=== PATIENT | female | born 1960 | race Caucasian/White ===

== ENCOUNTER 2024-12-17 13:32 | Emergency (ER) | payer BC, MEDICARE, SELFPAY ==
[2024-12-17] VITALS (29 sets, daily range): BP systolic 75–113; BP diastolic 35–65; BMI 17.4
[2024-12-17 13:56] LABS: Hematocrit 26.2 % (37.0-47.0); Hemoglobin 8.7 g/dL (12.0-16.0); Mean Corp Hgb Conc. 33.2 g/dL (33.0-37.0); Mean Corpuscular Volume 100.8 fL (81.0-99.0); Platelet Count 268 10^3/uL (130-400); Red Cell Dist. Width 14.5 % (11.5-14.5)
[2024-12-17 14:11] LABS: Blood Urea Nitrogen 48 mg/dl (7-17); Calcium 8.8 mg/dl (8.4-10.2); Carbon Dioxide 10 mmol/L (22-30); Chloride 98 mmol/L (98-107); Estimated Creatinine Clearance 24 ml/min; Glucose 77 mg/dl (70-99); Sodium 127 mmol/L (135-145); eGFR 35.35
[2024-12-17 14:16] LABS: Nucleated Red Blood Cells % 0.2 %
[2024-12-17] MEDS: ZOFRAN 4 MG IV (14:26)
--- NOTE | 2024-12-17 14:26 | ED.GENMED ---
History of Present Illness
General
Chief Complaint: Abdominal Symptoms
Source: patient
Time Seen by Provider: 12/17/24 14:00
History of Present Illness
History of Present Illness:
64-year-old female presents to the emergency room complaining of nausea, vomiting which began yesterday. Patient states she has pain all over. She denies any diarrhea or constipation. She is attempting to drink fluids and feels they sometimes
stay down though she has had about 5 or more episodes of vomiting in the past several hours. Patient had recent surgery for gastric volvulus and a hiatal hernia. This was performed at [place]. Patient evidently originally presented to [facility] for abdominal pain. She was found to have the above diagnosis and transferred to [place] for higher level of care. Patient came here because she did not want to go back to [place].
Phy Exam
Physical Exam
Physical Exam:
General: Awake, Alert, Oriented X3. Cachectic appearing, ill-appearing
Vitals: Hypotensive
Head: Atraumatic
Eyes: Pupils equal, EOMI
Throat: Airway intact, no exudates, dry mucosa
Neck: Trachea midline
Lungs: Clear and equal b/l
Heart: Regular rate, no murmurs
Abd: Soft, mild diffuse tenderness without point tenderness, No pulsatile mass
Neuro: Nonfocal
Skin: Warm, dry, no rash
Extremities: pulses equal b/l, no edema
Course
Orders/Labs/Results
Orders:
Orders
12/17/24 13:46
Basic Metabolic Panel Urgent
Complete Blood Count/With Diff Urgent
12/17/24 14:00
Lactate Level [Lactic Acid] Urgent
12/17/24 14:18
CT Chest/abd/pel Wo Iv Cont Urgent
Reason For Exam: pain, vomit, recent sx for gastric volv/hiatal her
Iohexol [Omnipaque] See Protocol PO NOW STA
12/17/24 14:22
Potassium Urgent
Venous Blood Gas Urgent
%Oxygen/Room Air: ra
12/17/24 14:23
Ondansetron Injectable [Zofran] 4 mg IV NOW STA
12/17/24 14:25
Electrocardiogram (*1) Urgent
Reason for Study: QTc Monitoring
EKG- Treatment ONCE
12/17/24 14:37
HYDROmorphone [Dilaudid] 0.5 mg IV NOW STA
12/17/24 15:06
Lactated Ringers [Lr] 1,000 ml IV BOLUS
12/17/24 15:15
Dextrose 5%/Water 1000 ml [D5w] 1,000 ml Sodium Bicarbonate 150 meq IV 200 mls/hr
12/17/24 15:53
Allen Placement- Treatment ONCE
Reason for insertion: I&O's Critical Care
Cefepime HCl [Maxipime] 2,000 mg IV NOW STA
MetroNIDAZOLE 500 MG/100 ML [Flagyl 500 mg] 100 ml IV NOW
NORepinephrine 4 MG/250 ML [Levophed] 4 mg in 250 ml IV NOW
Initial dose in mcg/min, then titrate:: 4
Titrate to keep:: MAP > 65 mmHg
Titrate by mcg/min:: 1-2 mcg/min
Frequency of titrations (minutes):: 5
Maximum dose in ICU in mcg/min:: 30
Maximum dose in IMU in mcg/min:: 8
Maximum dose in IVU in mcg/min:: 4
Begin to taper infusion when:: Remained at goal for 4hrs
Taper by mcg/min:: 1-2 mcg/min
Frequency of taper (minutes) if patient maintains goal:: 30
Taper to off?: Yes
If infusion off & no longer maintaining goal:: Contact Provider
12/17/24 17:17
Lactated Ringers [Lr] 1,000 ml IV BOLUS
12/17/24 17:36
Vasopressin 20 Units/100 ml [Pitressin] 20 units in 100 ml IV NOW
Initial dose in units/min, then titrate:: 0.03
Titrate to keep:: MAP > 65 mmHg
Titrate by units/min:: 0.005 units/min
Frequency of titrations (minutes):: 10
Maximum dose in units/min:: 0.1
Begin to taper infusion when:: Remained at goal for 8hrs
Taper by units/min:: 0.005 units/min
Frequency of taper (minutes) if patient maintains goal:: 60
Taper to off?: Yes
If infusion off and no longer mantaining goal:: Contact Provider
12/17/24 17:49
Basic Metabolic Panel Urgent
Comprehensive Metabolic Panel Urgent
Lactate Level [Lactic Acid] Urgent
Urinalysis Reflex To Culture Urgent
Date Specimen was Collected: 12/17/24
Time Specimen was Collected: 16:25
Urine Microscopic Reflex Cult Urgent
Blood Culture Q20M
JOSE RAFAEL Source: Blood/Venous
Specimen Description:
Comment: Urgent from separate sites. If patient screens positive for possible sepsis
Blood Culture Q20M
JOSE RAFAEL Source: Blood/Venous
Specimen Description:
Comment: Urgent from separate sites. If patient screens positive for possible sepsis
Urine Culture Urgent
JOSE RAFAEL Source: U
Specimen Description:
Date Specimen was Collected: 12/17/24
Time Specimen was Collected: 16:25
12/17/24 18:05
Vasopressin 20 Units/100 ml [Pitressin] 20 units in 100 ml IV NOW
Initial dose in units/min, then titrate:: 0.03
Titrate to keep:: MAP > 65 mmHg
Titrate by units/min:: 0.005 units/min
Frequency of titrations (minutes):: 10
Maximum dose in units/min:: 0.1
Begin to taper infusion when:: Remained at goal for 8hrs
Taper by units/min:: 0.005 units/min
Frequency of taper (minutes) if patient maintains goal:: 60
Taper to off?: Yes
If infusion off and no longer mantaining goal:: Contact Provider
12/17/24 18:08
Chest X-ray Portable [CR Chest Portable - 1 View] Urgent
Comment:
Reason For Exam: ngt
Reason Study Needs to be Portable: Patient Unstable
12/17/24 18:43
HYDROmorphone [Dilaudid] 0.5 mg IV NOW STA
12/17/24 19:22
NORepinephrine 4 MG/250 ML [Levophed] 4 mg in 250 ml .ROUTE .STK-MED
Abnormal Lab Results
12/17/24 12/17/24 12/17/24
13:46 14:00 14:22
WBC 23.6 H 10^3/uL
(4.8-10.8)
RBC 2.60 L 10^6/uL
(4.20-5.40)
Hgb 8.7 L g/dL
(12.0-16.0)
Hct 26.2 L %
(37.0-47.0)
MCV 100.8 H fL
(81.0-99.0)
MCH 33.5 H pg
(27.0-31.0)
Abs Immat Gran (auto) 0.2 H 10^3/uL
(0-0.05)
Absolute Neuts (auto) 20.4 H 10^3/uL
(1.4-6.5)
Absolute Lymphs (auto) 0.9 L 10^3/uL
(1.2-3.4)
Absolute Monos (auto) 2.0 H 10^3/uL
(0.1-0.6)
Immature Gran % 0.8 H %
(0-0.5)
Neutrophils % 86.4 H %
(42.2-75.2)
Lymphocytes % 3.9 L %
(20.5-51.1)
VBG pH 7.21 L
(7.32-7.43)
VBG pCO2 21 L mmHg
(35-48)
VBG pO2 166 H mmHg
(30-50)
VBG HCO3 8.4 L mmol/L
(22-27)
Sodium 127 L mmol/L
(135-145)
Potassium 5.8 H mmol/L
(3.5-5.1)
Carbon Dioxide 10 L* mmol/L
(22-30)
BUN 48 H mg/dl
(7-17)
Creatinine 1.6 H mg/dL
(0.6-1.0)
Glucose
Lactic Acid 12.7 H* mmol/L
(0.7-2.0)
Calcium
AST
ALT
Alkaline Phosphatase
Total Protein
Albumin
Urine Ketones
Ur Occult Blood Reflex
Urine Bilirubin
Urine Urobilinogen
Leukocyte Esterase Rfl
Urine Bacteria (Reflex)
Urine Albumin (Reflex)
12/17/24
17:49
WBC
RBC
Hgb
Hct
MCV
MCH
Abs Immat Gran (auto)
Absolute Neuts (auto)
Absolute Lymphs (auto)
Absolute Monos (auto)
Immature Gran %
Neutrophils %
Lymphocytes %
VBG pH
VBG pCO2
VBG pO2
VBG HCO3
Sodium 126 L mmol/L
(135-145)
Potassium
Carbon Dioxide
BUN 52 H mg/dl
(7-17)
Creatinine 1.4 H mg/dL
(0.6-1.0)
Glucose 153 H mg/dl
(70-99)
Lactic Acid 5.3 H* mmol/L
(0.7-2.0)
Calcium 7.4 L mg/dl
(8.4-10.2)
AST 2095 H* U/L
(14-36)
ALT 995 H* U/L
(0-35)
Alkaline Phosphatase 234 H U/L
(38-126)
Total Protein 4.2 L g/dl
(6.3-8.2)
Albumin 2.1 L g/dl
(3.5-5.0)
Urine Ketones 1+ A
(Negative)
Ur Occult Blood Reflex 1+ A
(Negative)
Urine Bilirubin 1+ A
(Negative)
Urine Urobilinogen 2+ A
(Neg - 1+)
Leukocyte Esterase Rfl 1+ A
(Negative)
Urine Bacteria (Reflex) Few A
(Negative)
Urine Albumin (Reflex) 2+ A
(Neg - Trace)
12/17/24 13:46
12/17/24 17:49
Vital Signs
Initial and Last Documented VS:
Initial Vital Signs
Temp Pulse Resp BP Pulse Ox
97.5 F 82 16 86/54 100
12/17/24 13:37 12/17/24 13:37 12/17/24 13:37 12/17/24 13:37 12/17/24 13:37
Last Documented Vital Signs
Temp Pulse Resp BP Pulse Ox
97.8 F 93 16 87/58 94
12/17/24 16:40 12/17/24 19:10 12/17/24 13:37 12/17/24 19:10 12/17/24 19:10
MDM/Problems Addressed
Differential Diagnosis Includes:
Dehydration from poor oral intake and vomiting, sepsis from postoperative infection, postoperative infection or other complication
MDM/Problems Addressed:
Patient presents with nausea vomiting. She has had multiple episodes over the past couple days. No diarrhea or constipation. Her abdominal exam is fairly benign. She is hypotensive on arrival. Labs show a significantly elevated white blood cell
count of 23.6. Her hemoglobin is adequate at 8.7. We do not have any old labs to compare these results to. Plate count is normal. Chemistries show a moderate hyponatremia at 127. Potassium is elevated at 5.8. She has a significantly decreased
bicarb. Renal function is abnormal with a BUN of 48 and creatinine 1.6. She has an anion gap of 19. Treatment initiated with fluid resuscitation. She received a liter normal saline and then a second liter of lactated Ringer's. Given her
markedly low bicarb and infusion of sodium bicarb was initiated. Patient's blood pressure did not seem to increase with fluid boluses. Therefore Levophed ordered. Broad-spectrum antibiotics ordered to cover intra-abdominal source. Will place a
Allen to carefully measure I+O's. We are attempting to obtain information from [place] about her recent hospitalization. CT of the chest abdomen pelvis ordered to evaluate for postoperative complications or other intra-abdominal pathology.
Chest x-ray after NG tube notes NG tube coiled in esophagus. Will pull it back several centimeters
*Pulse Oximetry
SaO2: 100
Oxygen Mode of Delivery: Room air
Patient hypoxic: no
*EKG
Interpreted by ED Provider?: Yes
Heart Rate: 85
Rate: normal
Rhythm: sinus
[place]: normal axis
Interval: normal interval
QRS Pattern: normal QRS
Ischemia: no ischemia
*Media Production Support Manager Interpretation
Rate: normal
Interpretation: abnormal
Rhythm: sinus
*Critical Care Note
Total Time (30-74mins, 75-104mins- exclusive of procedures): 50 min
ED Attending Note
-
Portions of this chart may have been created with voice recognition software.� Occasional wrong word or��sound alike� substitutions may have occurred due to the inherent limitations of voice recognition software.
Discharge Plan
Departure
Patient Disposition: Acute Care Hospital
Date of Disposition: 12/17/24
Time of Disposition: 18:01
Discharge Problem:
Shock, Metabolic acidosis, Acute renal failure (ARF)
Prescriptions:
No Action
pantoprazole [Protonix] 40 mg Tablet,Delayed Release (Dr/Ec)
40 mg PO BID
prednisone 10 mg Tablet
10 mg PO DIRECTED
Patient Comments:
12/17/24- patient unsure of directions, can see some directions for rx in doctor [facility], no ecw and her pharmacy close for today 12/17/24 will try 12/18/24
Rx Instructions:
take 40mg daily for 2 days then 30mg daily for 2 days then 20mg daily for 2 days then 10mg daily for 2 days then 5mg daily for 2 days
enalapril maleate 20 mg Tablet
20 mg PO HS
gabapentin 300 mg Capsule
300 mg PO TID
lorazepam 1 mg Tablet
1 mg PO QID
zolpidem [Ambien] 10 mg Tablet
10 mg PO HSPRN PRN (Reason: sleep)
albuterol sulfate [ProAir HFA] 90 mcg/actuation Hfa Aerosol Inhaler
2 puff INHALATION R Q6HPRN PRN (Reason: sob)
oxycodone 5 mg Tablet
5 mg PO Q6HPRN PRN (Reason: severe pains)
rosuvastatin [Crestor] 40 mg Tablet
40 mg PO DAILY
Asmanex Twisthaler 220 mcg/ actuation (120) Aerosol Powdr Breath Activated
1 inh INHALATION R BID
aripiprazole 2 mg Tablet
4 mg PO HS
Referrals:
UNKNOWN - PT DOES,NOT KNOW [Family Provider]
Hospital Transfer
Other hospital: [facility]
I certify that the patient requires transfer: Yes
Discussed case with accepting physician: Dr. Jones
Reason for transfer: higher level of care
Interventions
Interventions:
*Risk Screen - Suicide Last Done: 12/17/24 13:43
*General Assessment Last Done: 12/17/24 13:42
*Neglect/Abuse Screening Last Done: 12/17/24 13:43
*ED- Fall Risk Assessment Last Done: 12/17/24 13:42
*ED COVID-19 Vaccine History Last Done: 12/17/24 13:42
*Nursing Disposition Last Done: 12/17/24 19:45
PY-Tonqnq-Svoizanwmd Assessment Last Done: 12/17/24 13:43
Discharge Date and Time
Discharge Date/Time: 12/17/24 19:47
Print Language: UPPER SORBIAN
[2024-12-17 14:28] LABS: Venous Blood Gas B.E. -17.8 mmol/L (-4 to +4); Venous Blood Gas O2 Sat % 100.0 %
[2024-12-17 14:38] LABS: Potassium 5.8 mmol/L (3.5-5.1)
[2024-12-17] MEDS: OMNIPAQUE 50 ML PO (14:41)
[2024-12-17] MEDS: DILAUDID 0.5 MG IV ×2 (14:41→18:51)
[2024-12-17] MEDS: SODIUM BICARBONATE 1150 MEQ IV (15:22)
[2024-12-17] MEDS: LR 1000 IV ×2 (15:34→18:09)
[2024-12-17] MEDS: FLAGYL 500 MG 100 IV (16:46)
[2024-12-17] MEDS: LEVOPHED 250 IV (16:47)
[2024-12-17] MEDS: MAXIPIME 2000 MG IV (16:51)
--- NOTE | 2024-12-17 17:09 | PHANOTE ---
12/17/24- patient unsure of directions for prednisone taper, can see some directions for rx in doctor first, no ecw, [facility] pharmacy closed for today 12/17/24 will try 12/18/24, patient from [place], nurse working on paperwork being faxed over
[2024-12-17] MEDS: PITRESSIN 100 IV (18:09)
[2024-12-17 18:11] LABS: Urine Character Clear (Clear)
[2024-12-17 18:38] LABS: Albumin 2.1 g/dl (3.5-5.0); Alkaline Phosphatase 234 U/L (38-126); Blood Urea Nitrogen 52 mg/dl (7-17); Calcium 7.4 mg/dl (8.4-10.2); Carbon Dioxide 22 mmol/L (22-30); Chloride 98 mmol/L (98-107); Estimated Creatinine Clearance 28 ml/min; Glucose 153 mg/dl (70-99); Potassium 5.0 mmol/L (3.5-5.1); Sodium 126 mmol/L (135-145); Total Protein 4.2 g/dl (6.3-8.2); eGFR 41.49
[2024-12-17 18:49] LABS: Urine Red Blood Cell 0-2 /HPF (0-2); Urine White Cell 0-2 /HPF (0-5)
[2024-12-17 19:06] LABS: ALT (SGPT) 995 U/L (0-35); AST (SGOT) 2095 U/L (14-36)
== END 2024-12-17 19:47 | disposition short-term general hospital (02) ==
LOC: EMR 13:32
PROVIDERS: Student in an Organized Health Care Education/Training Program; EMERGENCY PHYSICIAN Emergency Medicine
DX: R11.2 Nausea with vomiting, unspecified (principal); R57.9 Shock, unspecified; N17.9 Acute kidney failure, unspecified; R52 Pain, unspecified; E87.20 Acidosis, unspecified; E87.1 Hypo-osmolality and hyponatremia; R64 Cachexia; Z98.890 Other specified postprocedural states; Z88.0 Allergy status to penicillin; Z88.2 Allergy status to sulfonamides
CPT/HCPCS: 96366 ×9; 96367 ×2; 96375 ×2; 43752; 51702; 71045; 71250; 74176; 80048; 80053; 81003; 81015; 82805; 83605; 84132; 85025; 87040; 87086; 93005; 96361; 96365; 96376; 99285; 99291

== ENCOUNTER 2025-01-07 13:13 | Inpatient (IN) | payer MEDICARE, BC, SELFPAY ==
[2025-01-05] VITALS (13 sets, daily range): BP systolic 90–143; BP diastolic 49–72; PULSE 89; O2SAT 100; BMI 19.9
[2025-01-05 13:04] LABS: Hematocrit 27.1 % (37.0-47.0); Hemoglobin 8.5 g/dL (12.0-16.0); Mean Corp Hgb Conc. 31.4 g/dL (33.0-37.0); Mean Corpuscular Volume 94.1 fL (81.0-99.0); Nucleated Red Blood Cells % 0.4 %; Platelet Count 382 10^3/uL (130-400); Red Cell Dist. Width 16.0 % (11.5-14.5)
--- NOTE | 2025-01-05 13:22 | ED.GENMED ---
History of Present Illness
General
Chief Complaint: Fall
Source: patient and ambulance crew
Exam Limitations: none
Time Seen by Provider: 01/05/25 12:59
Nursing documentation reviewed up to this point in time: agreed with
History of Present Illness
History of Present Illness:
64-year-old female with a past medical history of hypertension, hyperlipidemia who presents to the emergency department from home after a fall. Patient notably had gastric volvulus and hiatal hernia repair at [facility] 12/10/2024.
She says she recently returned home and has had a visiting nurse. She has been getting around mainly with a rollator. She says that last night she woke up to go to the bathroom at around 4 AM. While she was trying to get up to go to the bathroom
she says that her legs felt weak underneath her and 'gave out' and she fell to the ground. She says she fell onto her bottom. Unsure of head strike. She was not strong enough to get up and was found this morning by visiting nurse. She complains
of some mild pain in her bottom as well as some mild neck pain. She denies any headache. She denies any rib pain. Denies any abdominal pain. She has chronic swelling and pain in her legs but no acute pain in the legs, denies any injuries to the
arms. She insist that she did not pass out and that this was a mechanical fall. Medication review shows she is not on blood thinners.
I did review her chart which shows the patient was here in the emergency room 12/17/2024t that time presented with nausea and vomiting as well as abdominal discomfort. She had shock requiring vasopressors and multiple laboratory abnormalities at
the time; CT of the abdomen pelvis showed likely acute intraluminal hemorrhage into the esophagus and a large loculated fluid collection in the posterior mediastinum around the distal esophagus near the hiatal hernia repair. There is also
suggestion of pneumo and hemoperitoneum, severe colonic ileus. She was transferred back to [place] at that time�she cannot tell me exactly when she returned home but she tells me that she did not go to rehab after her return trip to [place]. I
attempted to reach out to her primary contact who is a friend but could not get an answer.
Review of Systems
Review of Systems
All Other Systems: ROS reviewed and negative except as documented in HPI and ROS
Constitutional: Reports fatigue; Denies fever
Respiratory: Denies trouble breathing
Cardiac: Denies chest pain
ABD/GI: Denies abdominal pain, nausea or vomiting
: Denies flank pain
Musculoskeletal: Reports neck pain; Denies back pain
Neurological: Reports weakness (Generalized); Denies dizzy or headache
Phy Exam
Physical Exam
Physical Exam:
General: Patient is lethargic but arousable and oriented x 3 upon awakening; frail and cachectic but in no acute distress
Head: Normocephalic, atraumatic
Eyes: Conjunctiva normal, pupils equal round reactive to light bilaterally
Throat: Airway intact, handling secretions
Neck: Trachea midline, mild paraspinal tenderness in the lower cervical spine
Back: No signs of trauma to the back or flank, mild tenderness over the coccyx but no tenderness in the thoracic or lumbar region; she has stage I sacral wound
Lungs: Clear to auscultation bilaterally, no wheezing, rales, rhonchi
Heart: Regular rate and rhythm, no murmurs, gallops, or rubs; no chest wall tenderness
Abd: Soft, non distended, nontender
Neuro: Lethargic but arousable, generally weak but no focal weakness
Skin: Patient has superficial skin breakdown on the lower extremities bilaterally and weeping of the skin due to significant edema; she has stage I sacral wound
Extremities: +2 pitting edema in the lower extremities bilaterally with minor skin breakdown and weeping; no signs of acute trauma to the extremities, extremities are warm and well-perfused
Scores
Heart Failure Risk
Heart Failure Risk Score: Not Applicable
Heart Score for Chest Pain Patients
STEMI patient?: Not applicable
Withdrawal Assessment of Alcohol
Withdrawal Assessment Completed?: Not applicable
Course
Orders/Labs/Results
Orders:
Orders
01/05/25 12:43
Complete Blood Count/With Diff Urgent
Comprehensive Metabolic Panel Urgent
Creatine Phosphokinase Urgent
Comment: ADD ON
01/05/25 13:11
Add On- LAB Stat
Tests Added?: CPK
01/05/25 13:21
CT Cervical Spine W/o Iv Contr Urgent
Comment:
Reason For Exam: fall, found down
CT Head W/o Iv Contrast Urgent
Comment:
Reason For Exam: fall, found down
CR Pelvis - 1 Or 2 Views Urgent
Comment:
Reason For Exam: fall on bottom
01/05/25 13:31
Urinalysis Reflex To Culture Urgent
Date Specimen was Collected: 01/05/25
Time Specimen was Collected: 15:08
0.9% Sodium Chloride 1000 ml [Nss] 1,000 ml IV BOLUS
Acetaminophen [Tylenol] 650 mg PO NOW STA
01/05/25 13:49
Case Management Consult ONCE
Case Management Consult: Halfway Placement
Pt Eval And Treat Urgent
Activity Level: With Assistance
01/05/25 Dinner
Regular
01/05/25 16:39
Ibuprofen [Motrin] 400 mg PO NOW STA
Abnormal Lab Results
01/05/25
12:43
RBC 2.88 L 10^6/uL
(4.20-5.40)
Hgb 8.5 L g/dL
(12.0-16.0)
Hct 27.1 L %
(37.0-47.0)
MCHC 31.4 L g/dL
(33.0-37.0)
RDW 16.0 H %
(11.5-14.5)
Abs Immat Gran (auto) 0.3 H 10^3/uL
(0-0.05)
Absolute Monos (auto) 0.7 H 10^3/uL
(0.1-0.6)
Immature Gran % 3.3 H %
(0-0.5)
Sodium 133 L mmol/L
(135-145)
Creatinine 0.4 L mg/dL
(0.6-1.0)
Calcium 7.5 L mg/dl
(8.4-10.2)
AST 40 H U/L
(14-36)
ALT 38 H U/L
(0-35)
Creatine Kinase 209 H U/L
(30-135)
Total Protein 5.1 L g/dl
(6.3-8.2)
Albumin 2.3 L g/dl
(3.5-5.0)
01/05/25 12:43
01/05/25 12:43
Vital Signs
Initial and Last Documented VS:
Initial Vital Signs
Temp Pulse Resp BP Pulse Ox
36.9 C 97 25 99/61 99
01/05/25 12:19 01/05/25 12:19 01/05/25 12:19 01/05/25 12:19 01/05/25 12:19
Last Documented Vital Signs
Temp Pulse Resp BP Pulse Ox
36.9 C 89 30 111/60 100
01/05/25 12:19 01/05/25 16:30 01/05/25 16:30 01/05/25 16:08 01/05/25 16:30
MDM/Problems Addressed
Differential Diagnosis Includes:
Fall/weakness: Deconditioning, anemia, dehydration, infection
Neck pain: Cervical strain, cervical fracture
Coccyx pain: Pelvic fracture, bruised tailbone/coccyx
MDM/Problems Addressed:
64-year-old female presents after a fall as described above was found down this morning after a few hours on the ground. Had recent surgery and postoperative complications at [place]. Fortunately she is not on any blood thinners. She is lethargic
but arousable�she does not believe that she hit her head. She complains of some mild neck pain as well as some pelvic/tailbone pain. Will plan to check CT of the head and cervical spine. Will check x-ray of the pelvis. Will place an IV and send
labs including a CBC and a CMP, CPK. Will check urinalysis. Provide some fluids as she appears dehydrated. Patient is so weak in the emergency room today that she could barely sit up without significant assistance�will need PT evaluation and I
think likely rehab given her degree of weakness if no acute issues noted on emergent workup.
We made a record request at [place] and are currently in the process of receiving records�cursory review of initial paperwork sent over shows that she was admitted 12/17 until 01/03 initially in the SICU for shock. Awaiting rest of records for review.
Her labs today showed hemoglobin of 8.5 which is stable. CMP shows no clinically significant abnormalities. CPK was marginal, not consistent with rhabdomyolysis. We are still awaiting imaging.
CT of the head and cervical spine no acute posttraumatic pathology. X-ray of the pelvis no acute fractures. Reviewed records from [place]�it sounds like patient was very fluid responsive after arrival when she was transferred on 12/17 and was weaned
off of pressors, diet advanced. Unfortunately she had significant edema due to vigorous fluid resuscitation. It sounds like she was noted to be deconditioned on assessment by PT/OT prior to discharge and was recommended for jail
facility but declined and was discharged home with visiting nurse. I spoke to the patient�on clinical reassessment she is much more awake. She says that her earlier lethargy was because she was very tired after being up all night secondary to the
fall. She confirmed that she previously declined jail but is agreeable to it now and I think that this would be morfin. I think her fall was from deconditioning. Awaiting PT evaluation and case management consultation.
PT evaluated and recommending jail facility for rehab. Case management evaluated patient unable to place until tomorrow. Will admit for monitoring pending placement. Discussed with hospitalist.
*Radiology
Radiology exam reviewed: preliminary read by ED provider and radiology read reviewed
*Pulse Oximetry
SaO2: 99
Oxygen Mode of Delivery: Room air
Patient hypoxic: no (99%)
*Critical Care Note
Total Time (30-74mins, 75-104mins- exclusive of procedures): Not Applicable
Data Reviewed
Source: patient and records
Patient Management
Social determinants of health affecting care: Living situation (Lives alone)
Discussion with other providers: Other (Discussed with case coordinator and physical therapy)
Escalation/DeEscalation of care consider admission/obs:
prison facility indicated�admission pending placement
ED Attending Note
-
Portions of this chart may have been created with voice recognition software.� Occasional wrong word or��sound alike� substitutions may have occurred due to the inherent limitations of voice recognition software.
Discharge Plan
Departure
Patient Disposition: Admit
Date of Disposition: 01/05/25
Time of Disposition: 16:40
Admit to doctor: Cheryl
Presentation/result/management discussed w/ accepting MD/DO: Hospitalist
Discharge Problem:
Physical deconditioning, Fall
Prescriptions:
No Action
pantoprazole [Protonix] 40 mg Tablet,Delayed Release (Dr/Ec)
40 mg PO BID
prednisone 10 mg Tablet
10 mg PO DIRECTED
Patient Comments:
12/17/24- patient unsure of directions, can see some directions for rx in doctor first, no ecw and her pharmacy close for today 12/17/24 will try 12/18/24
Rx Instructions:
take 40mg daily for 2 days then 30mg daily for 2 days then 20mg daily for 2 days then 10mg daily for 2 days then 5mg daily for 2 days
enalapril maleate 20 mg Tablet
20 mg PO HS
gabapentin 300 mg Capsule
300 mg PO TID
lorazepam 1 mg Tablet
1 mg PO QID
zolpidem [Ambien] 10 mg Tablet
10 mg PO HSPRN PRN (Reason: sleep)
albuterol sulfate [ProAir HFA] 90 mcg/actuation Hfa Aerosol Inhaler
2 puff INHALATION R Q6HPRN PRN (Reason: sob)
oxycodone 5 mg Tablet
5 mg PO Q6HPRN PRN (Reason: severe pains)
rosuvastatin [Crestor] 40 mg Tablet
40 mg PO DAILY
Asmanex Twisthaler 220 mcg/ actuation (120) Aerosol Powdr Breath Activated
1 inh INHALATION R BID
aripiprazole 2 mg Tablet
4 mg PO HS
Referrals:
John Paul DO [Family Provider, Family Practice]
Interventions
Interventions:
*Risk Screen - Suicide Last Done: 01/05/25 12:26
*General Assessment Last Done: 01/05/25 12:26
*Neglect/Abuse Screening Last Done: 01/05/25 12:26
*ED- Fall Risk Assessment Last Done: 01/05/25 16:00
*ED COVID-19 Vaccine History Last Done: 01/05/25 12:26
ED-Musculoskeletal Assessment Last Done: 01/05/25 14:46
ED- Neurological Assessment Last Done: 01/05/25 12:29
ED-Skin Assessment Last Done: 01/05/25 15:17
Discharge Date and Time
Print Language: TELUGU
[2025-01-05 13:28] LABS: ALT (SGPT) 38 U/L (0-35); AST (SGOT) 40 U/L (14-36); Albumin 2.3 g/dl (3.5-5.0); Alkaline Phosphatase 99 U/L (38-126); Blood Urea Nitrogen 13 mg/dl (7-17); Calcium 7.5 mg/dl (8.4-10.2); Carbon Dioxide 25 mmol/L (22-30); Chloride 105 mmol/L (98-107); Estimated Creatinine Clearance 74 ml/min; Glucose 89 mg/dl (70-99); Potassium 4.3 mmol/L (3.5-5.1); Sodium 133 mmol/L (135-145); Total Protein 5.1 g/dl (6.3-8.2); eGFR > 60.00
[2025-01-05] MEDS: NSS 1000 IV (14:04)
[2025-01-05] MEDS: TYLENOL 650 MG PO (14:04)
--- NOTE | 2025-01-05 16:43 | HPS.HSE ---
Family Physician
-
Family Physician: John Paul
Chief Complaint
-
mechanical fall
History of Present Illness
Patient is a 64-year-old female with past medical history significant for hypertension, hyperlipidemia and anemia who presented to [facility] ED for evaluation of mechanical fall. Patient with recent hospitalization at [facility] for hiatal hernia repair on
12/10/2024, on 12/17/2024 she was seen in ED for abdominal discomfort, nausea and vomiting, where she required vasopressors for shock and CT abdomen showed ikely acute intraluminal hemorrhage into the esophagus and a large loculated fluid collection
in the posterior mediastinum around the distal esophagus near the hiatal hernia repair. There is also suggestion of pneumo and hemoperitoneum, severe colonic ileus. She was transferred back to [place] at that time�she cannot tell me exactly when
she returned home but she tells me that she did not go to rehab after her return trip to [place]. Patient denies any dizziness, numbness, tingling, diaphoresis or loss of consciousness.
Medical History
Past Medical History
Past Medical History: Reports Other
Additional Past Medical History:
hypertension
hyperlipidemia
anemia
PAD
anxiety/depression
Past Surgical History: Reports Other
Additional Past Surgical History:
bunion surgery
sinus surgeries x2
hip surgery
hiatal hernia repair
Social History
Tobacco: Smoker (daily)
Alcohol: None
Drug: Marijuana (occasional )
Living: Alone
Employment: Not Employed
Family History
Family History: Not pertinent
Allergies / Home Medications
Allergies reflects when Allergies were last updated in [facility].
Home Medications with original date entered in [facility]
Allergy/Medication List:
Allergies
Allergy/AdvReac Type Severity Reaction Status Date / Time
Penicillins Allergy Unknown Verified 12/17/24 13:36
Sulfa (Sulfonamide Allergy Unknown Verified 12/17/24 13:36
Antibiotics)
Home Medications
albuterol sulfate 90 mcg/actuation aerosol inhaler 2 puff inhalation R Q6HPRN PRN sob 12/17/24
aripiprazole 2 mg tablet 4 mg PO HS 12/17/24
enalapril maleate 20 mg tablet 20 mg PO DAILY 12/17/24
lorazepam 1 mg tablet 1 mg PO QIDPRN PRN anxiety 12/17/24
mometasone 220 mcg/actuation(120 doses)breath activated powder inhaler (Asmanex Twisthaler) 1 inh inhalation R BID 12/17/24
pantoprazole 40 mg tablet,delayed release (Protonix) 40 mg PO BID 12/17/24
rosuvastatin 40 mg tablet (Crestor) 40 mg PO DAILY 12/17/24
zolpidem 10 mg tablet (Ambien) 10 mg PO HS 12/17/24
aspirin 81 mg tablet,delayed release 81 mg PO DAILY 01/05/25
khumawcwme-vbodnexjkqywn-ijmebytd 50 mg-325 mg-40 mg tablet 1 tab PO QIDPRN PRN mirgraines 01/05/25
cyclobenzaprine 10 mg tablet 10 mg PO BIDPRN PRN spasms 01/05/25
fexofenadine-pseudoephedrine ER 180 mg-240 mg tablet,ext.release 24 hr (Becky-D 24 Hour) 1 tab PO DAILY 01/05/25
ipratropium 0.5 mg-albuterol 3 mg (2.5 mg base)/3 mL nebulization soln 3 ml inhalation R Q6HPRN PRN sob 01/05/25
Review of Systems
-
History Source: Patient
Constitutional: Denies Fever or Fatigue
EENT: Reports No Symptoms
Respiratory: Denies Trouble Breathing
Cardiac: Denies Diaphoresis, Palpitations or Syncope
Abdomen/GI: Denies Abdominal Pain, Nausea or Vomiting
: Reports No Symptoms
Musculoskeletal: Reports Muscle Pain and Other (reports bilateral shoulder soreness )
Skin: Denies Rash
Neurological: Denies Dizzy, Weakness or Numbness
Endocrine: Reports No Symptoms
Hematologic/Lymphatic: Reports No Symptoms
Psych: Reports No Symptoms
Physical Exam
Vital Signs
Vital Signs
Temp Pulse Resp BP Pulse Ox
98.5 F 89 30 111/60 100
01/05/25 12:19 01/05/25 16:30 01/05/25 16:30 01/05/25 16:08 01/05/25 16:30
Physical Exam
General: Well Developed, No Apparent Distress and Cachectic
HEENT: NormoCephalic, Moist mucous membranes and Atraumatic
Respiratory: Clear and Non Labored Respirations
Cardiac: S1/S2 and Regular Rhythm; No Murmur, Rub or Gallop
GI: Soft, Non Tender, Non Distended and Normal Bowel Sounds
Rectal: Deferred by Provider
Musculoskeletal: No Clubbing, No Cyanosis and Edema, Right Lower Extremity
Skin: Other (RLE erythema; stage 1 sacral wound)
Neuro: AO x 3 and Nonfocal/grossly intact
Psych: Calm
Laboratory Results
-
01/05/25 12:43
01/05/25 12:43
Laboratory Results
Total Bilirubin 0.3 mg/dl (0.2-1.3) 01/05/25 12:43
AST 40 U/L (14-36) H 01/05/25 12:43
ALT 38 U/L (0-35) H 01/05/25 12:43
Alkaline Phosphatase 99 U/L (38-126) 01/05/25 12:43
Data Reviewed
-
Diagnostic Radiology: Report Reviewed by me (Pelvis: No acute fracture identified radiographically.)
CT Scan: Report Reviewed by me (Head: No acute intracranial abnormality.; C-spine: 1. No acute fracture or malalignment identified. Moderate degenerative changes as described. 2. Mildly enlarged left supraclavicular lymph nodes. These could
possibly be related to patient's recent history of surgery. If there is clinical concer)
Lab Data: Labs Reviewed by me (hgb 8.5, hct 27.1, Ca+ 7.5 (corrected to 8.9))
Impression/Plan
-
IMPRESSION/PLAN:
#mechanical fall likely 2/2 deconditioning s/p long hospitalization
Head CT: No acute intracranial abnormality.
C-Spine CT: 1. No acute fracture or malalignment identified. Moderate degenerative changes as described.
2. Mildly enlarged left supraclavicular lymph nodes. These could possibly be related to patient's recent history of surgery. If there is clinical concern, could be further evaluated with follow-up
ultrasound.
3. Very small focal opacities in the superior left lung as above. Given the size, these are likely to have a benign etiology. If there are risk factors, consider follow-up scan in 12 months as below.
Pelvis X-ray: No acute fracture identified radiographically.
- Admit to med/surg
- Consult Case Management
- Consult PT
#hypertension
- continue enalapril
#hyperlipidemia
- continue rosuvastatin
#anxiety/depression
- continue aripiprazole and lorazepam
#PAD
s/p stent RLE
RLE edema with blistering
- wound care consult
#GERD
- continue pantoprazole
#anemia
hgb 8.5/hct 27.1
appears to baseline
- monitor CBC
Code status: DNR
DVT prophylaxis: lovenox sq
--- NOTE | 2025-01-05 16:50 | CM ---
Patient seen at bedside
Patient had a fall at home
IA completed
CM consult completed
[employer] form explained & signed. given to community relations manager to scan
PT rec SNF
Patient was hospitalized at [place] in November and recent dc
Patient prefers [facility] (was to go post dc from [place], but declined)
Spoke with Leilani at [facility] ([phone]) & referral sent in [facility], bed available tomorrow
Leilani is off tomorrow call above number
Patient lives alone in an apartment, no steps
PLOF: independent with walker
DME: Walker, cane, shower chair
Patient current with [facility] (today was their first visit & was sent to ED), denies Rehab
PCP: John Paul
[facility]
PLAN: [facility], once accepted in [facility]
[2025-01-05] MEDS: MORPHINE SULFATE 2 MG IV (16:57)
--- NOTE | 2025-01-05 17:54 | W.PN.UPDATE ---
Update Note
Progress Note Update
This is an addendum to H&P written by Kristan Gonzalez on 01/05/2025. �Patient seen and examined independently with [employer]TER.
64-year-old female past medical history of recent admission at [place] for septic shock secondary to gastric volvulus secondary to hiatal hernia status post repair and gastropexy, PAD status post bypass of right lower extremity in 2022, COPD,
hypertension, hyperlipidemia, presenting for fall. �She felt her legs were weak and gave out. �Complains of some buttock pain and mild neck pain. �Unsure if hit head. �Denies dizziness or passing out.
She was recently admitted at [place] for gastric volvulus/hiatal hernia repair. �Was admitted again at [place] for hematemesis and shock. �She was discharged 2 days ago and recommended SNF but refused.
Vital signs normal. �On examination she has swelling and erythema of the right lower extremity edema blistering there is wrapped worse on the right leg.
Labs show stable anemia with hemoglobin 8.5. �Mild transaminitis although was significantly higher up to 1999 AST/900 ALT recently on 12/17.
CT head shows no acute abnormality. �CT cervical spine shows no acute abnormality. �Pelvic x-ray shows no acute fracture.
PT/OT. �Case management consulted unable to place until tomorrow.
Wound care for lower extemities edema blistering.
[2025-01-05] MEDS: PROTONIX 40 MG PO (20:48)
[2025-01-05] MEDS: LOVENOX 40 MG SC (20:48)
[2025-01-05] MEDS: ROXICODONE 5 MG PO (20:48)
--- NOTE | 2025-01-05 20:57 | PTCARENOTE ---
Pt arrived onto floor @2056. Pt AAOx3 and a pullman car repairer to the bed. Pt with no complaints of SOB at this time. Pt oriented to room and call canas; will continue to monitor
[2025-01-05] MEDS: ATIVAN 1 MG PO (21:50)
[2025-01-05] MEDS: ABILIFY 4 MG PO (21:50)
[2025-01-05] MEDS: AMBIEN 10 MG PO (21:50)
[2025-01-05] MEDS: FLOVENT 110 MCG INHALER INH (22:32)
[2025-01-06] MEDS: TYLENOL 650 MG PO ×3 (00:09→17:33)
[2025-01-06] MEDS: ATIVAN 1 MG PO ×4 (01:07→19:43)
[2025-01-06] MEDS: ROXICODONE 5 MG PO ×5 (01:07→21:30)
[2025-01-06 08:00] VITALS: BP 133/70
--- NOTE | 2025-01-06 08:06 | W.PN.HOSP.TC ---
Today's Communication/Plan
-
Pending lab work, possible discharge to rehab today if no further fever.
Assessment / Plan
Assessment / Plan
Impression:
64-year-old female past medical history of recent admission at [place] for septic shock secondary to gastric volvulus secondary to hiatal hernia status post repair and gastropexy, PAD status post bypass of right lower extremity in 2022, COPD,
hypertension, hyperlipidemia, presenting for fall. �She felt her legs were weak and gave out. �Complains of some buttock pain and mild neck pain. �Unsure if hit head. �Denies dizziness or passing out. She was recently admitted at [place] for gastric
volvulus/hiatal hernia repair. �Was admitted again at [place] for hematemesis and shock. �She was discharged 2 days ago and recommended SNF but refused. Vital signs normal. �On examination she has swelling and erythema of the right lower extremity
edema blistering there is wrapped worse on the right leg. Labs show stable anemia with hemoglobin 8.5. �Mild transaminitis although was significantly higher up to 2000 AST/900 ALT recently on 12/17. CT head shows no acute abnormality. �CT cervical
spine shows no acute abnormality. �Pelvic x-ray shows no acute fracture.
Admitted under hospitalist service, consult PT/OT. �Case management consulted for placement
Wound care for lower extemities edema blistering.
Had a run of fever in the morning, but patient supposed to be on Augmentin, which resumed.
Blood culture obtained.
Assessment/plan:
Status post mechanical fall likely 2/2 deconditioning s/p long hospitalization
Head CT: No acute intracranial abnormality.
C-Spine CT: 1. No acute fracture or malalignment identified. Moderate degenerative changes as described.
2. Mildly enlarged left supraclavicular lymph nodes. These could possibly be related to patient's recent history of surgery. If there is clinical concern, could be further evaluated with follow-up
ultrasound.
3. Very small focal opacities in the superior left lung as above. Given the size, these are likely to have a benign etiology. If there are risk factors, consider follow-up scan in 12 months as below.
Pelvis X-ray: No acute fracture identified radiographically.
- Admit to med/surg
- Consult Case Management
- Consult PT
Fever(low-grade)
Patient recently discharged from [facility] and supposed to be on Augmentin.
Most likely secondary to bilateral lower extremity skin infection.
Augmentin resumed.
Hyponatremia.
Continue to monitor
History of hypertension
- continue enalapril
History of hyperlipidemia
- continue rosuvastatin
History of anxiety/depression
- continue aripiprazole and lorazepam
History of PAD
s/p stent RLE
RLE edema with blistering
- wound care consult
History GERD
- continue pantoprazole
Anemia
hgb 8.5/hct 27.1
appears to baseline
- monitor CBC
CODE STATUS: DNR
DVT prophylaxis: Lovenox
Diet: Regular diet
Disposition: Possible discharge to rehab today
Total time spent on today's encounter was 65 minutes which included time spent in counseling the patient/family regarding diagnosis and treatment plan as listed above, goals of care, and symptom management. Case was discussed with nursing staff,
specialists, and care coordinators/case management. All labs and imaging personally reviewed by me. Remainder the time spent in detailed review of previous records, lab data, imaging, and other medical provider documentation.
Anticipated Discharge: Today
Subjective/Interval History
-
Date of Service: January 06, 2025
Patient seen and examined at bedside, patient complaining of generalized bodyaches.
Had mild degree fever but patient supposed to be on Augmentin which resumed.
Objective Data
-
Vital Signs:
Vital Signs
Temp Pulse Resp BP Pulse Ox
99.4 F 88 18 95/59 99
01/05/25 23:38 01/05/25 23:38 01/05/25 23:38 01/05/25 23:38 01/05/25 23:38
I&O
01/05/25 01/06/25 01/07/25
06:59 06:59 06:59
Intake Total 240 / 240
Balance 240 / 240
Physical Exam
-
General: Well Developed, Well Nourished, No Apparent Distress and Comfortable
HEENT: Normocephalic, Atraumatic, Moist Mucous Membranes, No Ptosis, PERRLA and Nose Appears Normal
Respiratory: Clear to Auscultation and Non Labored Respirations
Cardiac: Regular Rhythm and S1/S2
Breast: Deferred by me
GI: Soft, Nontender, Nondistended and Normal Bowel Sounds
Genito-urinary: No Costovertebral Tender
Musculoskeletal: No Clubbing, No Cyanosis and No Edema
Skin: Warm
Neuro: Awake, Alert, Oriented, AO x 3 and No Motor Deficits
Psych: Calm
Data Reviewed
-
Diagnostic Radiology: Image personally visualized and interpreted and Report Reviewed by me
CT Scan: Image personally visualized and interpreted and Report Reviewed by me
Ultrasound: Image personally visualized and interpreted and Report Reviewed by me
MRI: Image personally visualized and interpreted and Report Reviewed by me
Medical Tests (Nuc Med, Echo etc): Image personally visualized and interpreted and Report Reviewed by me
Labs: Labs Reviewed by me
Old Records: Reviewed
[2025-01-06] MEDS: FLOVENT 110 MCG INHALER 2 PUFF INH ×2 (08:08→20:22)
[2025-01-06] MEDS: CRESTOR 40 MG PO (08:11)
[2025-01-06] MEDS: VASOTEC 20 MG PO (08:11)
[2025-01-06] MEDS: ASPIR LOW (ENTERIC COATED) 81 MG PO (08:11)
[2025-01-06] MEDS: PROTONIX 40 MG PO ×2 (08:12→19:43)
[2025-01-06] MEDS: CLARITIN 10 MG PO (08:12)
[2025-01-06 09:12] LABS: Hematocrit 26.0 % (37.0-47.0); Hemoglobin 8.1 g/dL (12.0-16.0); Mean Corp Hgb Conc. 31.2 g/dL (33.0-37.0); Mean Corpuscular Volume 93.9 fL (81.0-99.0); Platelet Count 404 10^3/uL (130-400); Red Cell Dist. Width 16.0 % (11.5-14.5)
--- NOTE | 2025-01-06 09:49 | CM ---
Addendum entered by Alicia Lugo 01/06/25 11:51:
Per hospitalist, blood work received back. Patient is clear for discharge
Addendum entered by Alicia Lugo 01/06/25 10:38:
Spoke w/ [facility] admissions, confirmed bed today for patient
Updated hospitalist, awaiting blood work
Updated patient bedside
Patient will need ambulance transport, forms on chart
[facility]
Report: [phone]

Plan: D/c to [facility] SNF today
Original Note:
Chart reviewed. Patient being rec for SNF, patient prefers [facility], referral in [facility]. Poss bed today
Spoke w/
[2025-01-06] MEDS: AUGMENTIN 875 MG/125 MG 1 TABLET PO ×2 (10:09→19:43)
[2025-01-06] MEDS: FLEXERIL 10 MG PO ×2 (10:09→20:45)
--- NOTE | 2025-01-06 10:49 | WOUNDNOTE ---
[facility] RN NOTE: Reviewed chart and met with patient and CM. Patient recently discharged from [place] but decline SNF at the time of discharge. Patient admitted to [facility] s/p mechanical fall. POA stage 1 wound on sacrum. Patient reports falling and sliding
on sacrum. LE with +2 edema and open wounds that appear to be open blisters. Venous stasis changes to legs with + pedal pulses. Patient said 'I'm supposed to wear compression but I don't.' Patient was medicated for pain prior to assessment by RN,
Lily. Patient able to turn in bed with assistance and reports fair appetite. Patient transferred to [facility] this morning prior to assessment. Discussed smoking cessation with patient and the impact of smoking on wound healing and overall health.
Patient said she would think about it. Heels intact and off-loaded with pillow under calves. Orders confirmed by Dr. Dupree and care plan and discharge updated. Plan is for discharge to SNF today.
[2025-01-06 11:42] LABS: ALT (SGPT) 33 U/L (0-35); AST (SGOT) 36 U/L (14-36); Albumin 2.2 g/dl (3.5-5.0); Alkaline Phosphatase 102 U/L (38-126); Blood Urea Nitrogen 10 mg/dl (7-17); Calcium 7.3 mg/dl (8.4-10.2); Carbon Dioxide 23 mmol/L (22-30); Chloride 108 mmol/L (98-107); Estimated Creatinine Clearance 74 ml/min; Glucose 121 mg/dl (70-99); Potassium 4.3 mmol/L (3.5-5.1); Sodium 132 mmol/L (135-145); Total Protein 5.1 g/dl (6.3-8.2); eGFR > 60.00
--- NOTE | 2025-01-06 12:00 | WOUNDNOTE ---
RIGHT GREAT TOE
--- NOTE | 2025-01-06 12:02 | W.DCSUMMARY ---
Discharge Summary
Discharge Data
Date of Admission: 01/05/25
Date of Discharge: 01/06/25
Total time spent discharging patient (in min): 40
-
Pending Results: No
Hospital Course
Hospital course
64-year-old female past medical history of recent admission at [place] for septic shock secondary to gastric volvulus secondary to hiatal hernia status post repair and gastropexy, PAD status post bypass of right lower extremity in 2022, COPD,
hypertension, hyperlipidemia, presenting for fall. �She felt her legs were weak and gave out. �Complains of some buttock pain and mild neck pain. �Unsure if hit head. �Denies dizziness or passing out. She was recently admitted at [place] for gastric
volvulus/hiatal hernia repair. �Was admitted again at [place] for hematemesis and shock. �She was discharged 2 days ago and recommended SNF but refused. Vital signs normal. �On examination she has swelling and erythema of the right lower extremity
edema blistering there is wrapped worse on the right leg. Labs show stable anemia with hemoglobin 8.5. �Mild transaminitis although was significantly higher up to 2000 AST/900 ALT recently on 12/17. CT head shows no acute abnormality. �CT cervical
spine shows no acute abnormality. �Pelvic x-ray shows no acute fracture.
Admitted under hospitalist service, consult PT/OT. �Case management consulted for placement
Wound care for lower extemities edema blistering.
Had a run of fever in the morning, but patient supposed to be on Augmentin, which resumed.
Blood culture obtained
During hospitalization patient was treated from the following
Status post mechanical fall likely 2/2 deconditioning s/p long hospitalization
Head CT: No acute intracranial abnormality.
C-Spine CT: 1. No acute fracture or malalignment identified. Moderate degenerative changes as described.
2. Mildly enlarged left supraclavicular lymph nodes. These could possibly be related to patient's recent history of surgery. If there is clinical concern, could be further evaluated with follow-up
ultrasound.
3. Very small focal opacities in the superior left lung as above. Given the size, these are likely to have a benign etiology. If there are risk factors, consider follow-up scan in 12 months as below.
Pelvis X-ray: No acute fracture identified radiographically.
- Admit to med/surg
- Consult Case Management
- Consult PT
Fever(low-grade)
Patient recently discharged from [facility] and supposed to be on Augmentin.
Most likely secondary to bilateral lower extremity skin infection.
Augmentin resumed.
Hyponatremia.
Continue to monitor
History of hypertension
- continue enalapril
History of hyperlipidemia
- continue rosuvastatin
History of anxiety/depression
- continue aripiprazole and lorazepam
History of PAD
s/p stent RLE
RLE edema with blistering
- wound care consult
History GERD
- continue pantoprazole
Anemia
hgb 8.5/hct 27.1
appears to baseline
- monitor CBC
CODE STATUS: DNR
DVT prophylaxis: Lovenox
Diet: Regular diet
Disposition: Possible discharge to rehab today
Total time spent on today's encounter was 40 minutes which included time spent in counseling the patient/family regarding diagnosis and treatment plan as listed above, goals of care, and symptom management. Case was discussed with nursing staff,
specialists, and care coordinators/case management. All labs and imaging personally reviewed by me. Remainder the time spent in detailed review of previous records, lab data, imaging, and other medical provider documentation.
Anticipated Discharge: Today
Discharge Plan
-
Patient Disposition: Penitentiary/SNF
Discharge Diagnosis/Procedures: Status post mechanical fall likely 2/2 deconditioning s/p long hospitalization
Fever
Diet: As tolerated and Regular
Activity: With assistance and As tolerated
Other Services: PT and OT
Activity Restrictions/Additional Instructions:
Wound Care Instructions LE wounds- Clean with saline, apply adaptic, 4x4 and omid. Apply DENNY from foot to below knee. Change daily.
Sacrum- Clean with saline apply foam. Change daily and PRN
Keep heels off-loaded with pillows under calves.
Encourage protein intake and turning and repositioning
Referrals:
John Paul DO [Family Provider, Family Practice]
Prescriptions:
New
amoxicillin-pot clavulanate 875-125 mg Tablet
1 tab PO Q12 10 Days Qty: 20 0RF
acetaminophen 325 mg Tablet
650 mg PO Q4HPRN PRN (Reason: mild pain/GALLO/temp> 100.4F) Qty: 30 0RF
oxycodone 5 mg Tablet
5 mg PO Q4HPRN PRN (Reason: moderate pain) Qty: 5 0RF
Continued
pantoprazole [Protonix] 40 mg Tablet,Delayed Release (Dr/Ec)
40 mg PO BID
enalapril maleate 20 mg Tablet
20 mg PO DAILY
lorazepam 1 mg Tablet
1 mg PO QIDPRN PRN (Reason: anxiety)
zolpidem [Ambien] 10 mg Tablet
10 mg PO HS
albuterol sulfate 90 mcg/actuation Hfa Aerosol Inhaler
2 puff INHALATION R Q6HPRN PRN (Reason: sob)
rosuvastatin [Crestor] 40 mg Tablet
40 mg PO DAILY
Asmanex Twisthaler 220 mcg/ actuation (120) Aerosol Powdr Breath Activated
1 inh INHALATION R BID
aripiprazole 2 mg Tablet
4 mg PO HS
cyclobenzaprine 10 mg Tablet
10 mg PO BIDPRN PRN (Reason: spasms)
ipratropium-albuterol 0.5 mg-3 mg(2.5 mg base)/3 mL Solution For Nebulization
3 ml INHALATION R Q6HPRN PRN (Reason: sob)
aspirin 81 mg Tablet,Delayed Release (Dr/Ec)
81 mg PO DAILY
rbhnjlrbto-uyignzpjudiwt-zzpt 50-325-40 mg tablet
1 tab PO QIDPRN PRN (Reason: mirgraines)
fexofenadine-pseudoephedrine [Becky-D 24 Hour] 180-240 mg Tablet Extended Release 24 Hr
1 tab PO DAILY
Discharge Orders:
Discharge Patient (As Directed); Ordered 01/06/25
Ordered By: Leia Antony
Discharge Date and Time
Print Language: TOGOLESE
[2025-01-06 16:00] VITALS: BP 126/69
[2025-01-06] MEDS: LOVENOX 40 MG SC (17:35)
[2025-01-06] MEDS: AMBIEN 10 MG PO (21:28)
[2025-01-06] MEDS: ABILIFY 4 MG PO (21:28)
[2025-01-06 23:07] VITALS: BP 107/66
[2025-01-07] MEDS: ROXICODONE 5 MG PO ×4 (03:21→19:45)
[2025-01-07] MEDS: ATIVAN 1 MG PO ×3 (05:05→20:36)
[2025-01-07 07:00] VITALS: BP 116/77
[2025-01-07] MEDS: ASPIR LOW (ENTERIC COATED) 81 MG PO (07:56)
[2025-01-07] MEDS: AUGMENTIN 875 MG/125 MG 1 TABLET PO ×2 (07:56→19:41)
[2025-01-07] MEDS: FLOVENT 110 MCG INHALER 2 PUFF INH ×2 (07:56→19:26)
[2025-01-07] MEDS: CLARITIN 10 MG PO (07:56)
[2025-01-07] MEDS: CRESTOR 40 MG PO (07:56)
[2025-01-07] MEDS: PROTONIX 40 MG PO ×2 (07:57→19:41)
[2025-01-07] MEDS: VASOTEC 20 MG PO (07:57)
[2025-01-07 09:00] LABS: Hematocrit 27.6 % (37.0-47.0); Hemoglobin 8.6 g/dL (12.0-16.0); Mean Corp Hgb Conc. 31.2 g/dL (33.0-37.0); Mean Corpuscular Volume 93.9 fL (81.0-99.0); Platelet Count 430 10^3/uL (130-400); Red Cell Dist. Width 16.1 % (11.5-14.5)
[2025-01-07 10:13] LABS: ALT (SGPT) 28 U/L (0-35); AST (SGOT) 32 U/L (14-36); Albumin 2.2 g/dl (3.5-5.0); Alkaline Phosphatase 94 U/L (38-126); Blood Urea Nitrogen 9 mg/dl (7-17); Calcium 7.3 mg/dl (8.4-10.2); Carbon Dioxide 23 mmol/L (22-30); Chloride 107 mmol/L (98-107); Estimated Creatinine Clearance 74 ml/min; Glucose 127 mg/dl (70-99); Potassium 4.2 mmol/L (3.5-5.1); Sodium 132 mmol/L (135-145); Total Protein 5.0 g/dl (6.3-8.2); eGFR > 60.00
--- NOTE | 2025-01-07 13:10 | W.PN.HOSP.TC ---
Today's Communication/Plan
-
Urinalysis.
Chest x ray
Assessment / Plan
Assessment / Plan
Impression:
64-year-old female past medical history of recent admission at [place] for septic shock secondary to gastric volvulus secondary to hiatal hernia status post repair and gastropexy, PAD status post bypass of right lower extremity in 2022, COPD,
hypertension, hyperlipidemia, presenting for fall. �She felt her legs were weak and gave out. �Complains of some buttock pain and mild neck pain. �Unsure if hit head. �Denies dizziness or passing out. She was recently admitted at [facility] for gastric
volvulus/hiatal hernia repair. �Was admitted again at [facility] for hematemesis and shock. �She was discharged 2 days ago and recommended SNF but refused. Vital signs normal. �On examination she has swelling and erythema of the right lower extremity
edema blistering there is wrapped worse on the right leg. Labs show stable anemia with hemoglobin 8.5. �Mild transaminitis although was significantly higher up to 1999 AST/900 ALT recently on 12/17. CT head shows no acute abnormality. �CT cervical
spine shows no acute abnormality. �Pelvic x-ray shows no acute fracture.
Admitted under hospitalist service, consult PT/OT. �Case management consulted for placement
Wound care for lower extemities edema blistering.
Had a run of fever in the morning, but patient supposed to be on Augmentin, which resumed.
Blood culture obtained.
Since patient continued to run fever, discharge held
Assessment/plan:
Status post mechanical fall likely 2/2 deconditioning s/p long hospitalization
Head CT: No acute intracranial abnormality.
C-Spine CT: 1. No acute fracture or malalignment identified. Moderate degenerative changes as described.
2. Mildly enlarged left supraclavicular lymph nodes. These could possibly be related to patient's recent history of surgery. If there is clinical concern, could be further evaluated with follow-up
ultrasound.
3. Very small focal opacities in the superior left lung as above. Given the size, these are likely to have a benign etiology. If there are risk factors, consider follow-up scan in 12 months as below.
Pelvis X-ray: No acute fracture identified radiographically.
- Admit to med/surg
- Consult Case Management
- Consult PT
Fever(low-grade)
Patient recently discharged from [facility] and supposed to be on Augmentin.
Records from [facility] reviewed, patient was on Unasyn IV during hospitalization for concern of empyema.
Patient had thoracentesis done with clear pleural fluid
Augmentin resumed.
Patient still running fever will obtain chest x-ray and urinalysis.
Hyponatremia.
Continue to monitor
History of hypertension
- continue enalapril
History of hyperlipidemia
- continue rosuvastatin
History of anxiety/depression
- continue aripiprazole and lorazepam
History of PAD
s/p stent RLE
RLE edema with blistering
- wound care consult
History GERD
- continue pantoprazole
Anemia
hgb 8.5/hct 27.1
appears to baseline
- monitor CBC
CODE STATUS: DNR
DVT prophylaxis: Lovenox
Diet: Regular diet
Disposition: Obtain urinalysis/chest x-ray
Total time spent on today's encounter was 65 minutes which included time spent in counseling the patient/family regarding diagnosis and treatment plan as listed above, goals of care, and symptom management. Case was discussed with nursing staff,
specialists, and care coordinators/case management. All labs and imaging personally reviewed by me. Remainder the time spent in detailed review of previous records, lab data, imaging, and other medical provider documentation.
Anticipated Discharge: 24 - 48 hours
Subjective/Interval History
-
Date of Service: January 07, 2025
Patient still running fever, complaining of generalized bodyaches.
Objective Data
-
Labs:
Laboratory Results
01/07/25 01/07/25
08:20 09:31
WBC 7.5
Hgb 8.6 L
Hct 27.6 L
Plt Count 430 H
Sodium Cancelled 132 L
Potassium Cancelled 4.2
Chloride Cancelled 107
Carbon Dioxide Cancelled 23
BUN Cancelled 9
Creatinine Cancelled 0.3 L
Glucose Cancelled 127 H
Calcium Cancelled 7.3 L
Total Bilirubin Cancelled 0.3
AST Cancelled 32
ALT Cancelled 28
Alkaline Phosphatase Cancelled 94
Vital Signs:
Vital Signs
Temp Pulse Resp BP Pulse Ox
100.2 F 101 16 116/77 95
01/07/25 07:00 01/07/25 07:59 01/07/25 07:59 01/07/25 07:57 01/07/25 07:59
I&O
01/06/25 01/07/25 01/08/25
06:59 06:59 06:59
Intake Total 240 / 240 780 / 780
Balance 240 / 240 780 / 780
Physical Exam
-
General: Well Developed, Well Nourished, No Apparent Distress and Comfortable
HEENT: Normocephalic, Atraumatic, Moist Mucous Membranes, No Ptosis, PERRLA and Nose Appears Normal
Respiratory: Clear to Auscultation and Non Labored Respirations
Cardiac: Regular Rhythm and S1/S2
Breast: Deferred by me
GI: Soft, Nontender, Nondistended and Normal Bowel Sounds
Genito-urinary: No Costovertebral Tender
Musculoskeletal: No Clubbing, No Cyanosis and No Edema
Skin: Warm
Neuro: Awake, Alert, Oriented, AO x 3 and No Motor Deficits
Psych: Calm
Data Reviewed
-
Diagnostic Radiology: Image personally visualized and interpreted and Report Reviewed by me
CT Scan: Image personally visualized and interpreted and Report Reviewed by me
Ultrasound: Image personally visualized and interpreted and Report Reviewed by me
MRI: Image personally visualized and interpreted and Report Reviewed by me
Medical Tests (Nuc Med, Echo etc): Image personally visualized and interpreted and Report Reviewed by me
Labs: Labs Reviewed by me
Old Records: Reviewed
--- NOTE | 2025-01-07 14:15 | CM ---
sent updated notes to [facility] in [facility]. Patient had fever so d/c cancelled yesterday. New orders for urinalysis and chest xray today.
CM to call [facility] tomorrow if d/c is put in to see if they will accept her Thursday.
Patient will need ambulance transport, forms on chart
[facility]
Report: [phone]

Plan: D/c to [facility] SNF
[2025-01-07] MEDS: FLEXERIL 10 MG PO ×2 (14:35→19:45)
[2025-01-07 15:00] VITALS: BP 113/69
[2025-01-07 16:35] LABS: Glucose - Point of Care 96 mg/dl (70-99)
[2025-01-07] MEDS: LOVENOX 40 MG SC (17:01)
[2025-01-07 19:05] LABS: Urine Character Slightly Cloudy (Clear)
[2025-01-07 19:13] LABS: Urine Red Blood Cell 0-2 /HPF (0-2); Urine Squamous Cell 0-2 /LPF (Few); Urine White Cell 0-2 /HPF (0-5)
[2025-01-07] MEDS: ABILIFY 4 MG PO (21:27)
[2025-01-07] MEDS: AMBIEN 10 MG PO (21:27)
[2025-01-07 23:26] VITALS: BP 116/78
[2025-01-08] MEDS: ROXICODONE 5 MG PO ×5 (04:14→23:42)
[2025-01-08 06:07] LABS: Hematocrit 24.7 % (37.0-47.0); Hemoglobin 7.8 g/dL (12.0-16.0); Mean Corp Hgb Conc. 31.6 g/dL (33.0-37.0); Mean Corpuscular Volume 93.9 fL (81.0-99.0); Platelet Count 372 10^3/uL (130-400); Red Cell Dist. Width 16.2 % (11.5-14.5)
[2025-01-08] MEDS: FLEXERIL 10 MG PO ×2 (06:34→19:45)
[2025-01-08] MEDS: ATIVAN 1 MG PO ×2 (06:34→12:04)
[2025-01-08 06:36] LABS: Blood Urea Nitrogen 7 mg/dl (7-17); Calcium 7.3 mg/dl (8.4-10.2); Carbon Dioxide 27 mmol/L (22-30); Chloride 105 mmol/L (98-107); Estimated Creatinine Clearance 74 ml/min; Glucose 94 mg/dl (70-99); Potassium 4.4 mmol/L (3.5-5.1); Sodium 130 mmol/L (135-145); eGFR > 60.00
[2025-01-08 07:40] VITALS: BP 126/81
[2025-01-08] MEDS: FLOVENT 110 MCG INHALER 2 PUFF INH ×2 (08:36→20:06)
[2025-01-08] MEDS: AUGMENTIN 875 MG/125 MG 1 TABLET PO ×2 (09:01→19:44)
[2025-01-08] MEDS: VASOTEC 20 MG PO (09:01)
[2025-01-08] MEDS: ASPIR LOW (ENTERIC COATED) 81 MG PO (09:01)
[2025-01-08] MEDS: PROTONIX 40 MG PO ×2 (09:02→19:45)
[2025-01-08] MEDS: CRESTOR 40 MG PO (09:02)
[2025-01-08] MEDS: CLARITIN 10 MG PO (09:02)
[2025-01-08] MEDS: MIRALAX 17 GRAMS PO (12:04)
--- NOTE | 2025-01-08 12:26 | W.PN.HOSP.TC ---
Today's Communication/Plan
-
CT chest pending.
Continue Augmentin for now.
Hold discharge to SNF
Assessment / Plan
Assessment / Plan
Impression:
64-year-old female past medical history of recent admission at [place] for septic shock secondary to gastric volvulus secondary to hiatal hernia status post repair and gastropexy, PAD status post bypass of right lower extremity in 2022, COPD,
hypertension, hyperlipidemia, presenting for fall. �She felt her legs were weak and gave out. �Complains of some buttock pain and mild neck pain. �Unsure if hit head. �Denies dizziness or passing out. She was recently admitted at [place] for gastric
volvulus/hiatal hernia repair. �Was admitted again at [place] for hematemesis and shock. �She was discharged 2 days ago and recommended SNF but refused. Vital signs normal. �On examination she has swelling and erythema of the right lower extremity
edema blistering there is wrapped worse on the right leg. Labs show stable anemia with hemoglobin 8.5. �Mild transaminitis although was significantly higher up to 2000 AST/900 ALT recently on 12/17. CT head shows no acute abnormality. �CT cervical
spine shows no acute abnormality. �Pelvic x-ray shows no acute fracture.
Admitted under hospitalist service, consult PT/OT. �Case management consulted for placement
Wound care for lower extemities edema blistering.
Had a run of fever in the morning, but patient supposed to be on Augmentin, which resumed.
Blood culture obtained.
Since patient continued to run fever, discharge held
Chest x-ray done showed:
Hazy opacification over both lower hemithoraces may represent layering pleural effusions. Although no gross focal parenchymal consolidation, pneumonia cannot be entirely excluded.
CT chest pending
Urine analysis negative.
Assessment/plan:
Status post mechanical fall likely 2/2 deconditioning s/p long hospitalization
Head CT: No acute intracranial abnormality.
C-Spine CT: 1. No acute fracture or malalignment identified. Moderate degenerative changes as described.
2. Mildly enlarged left supraclavicular lymph nodes. These could possibly be related to patient's recent history of surgery. If there is clinical concern, could be further evaluated with follow-up
ultrasound.
3. Very small focal opacities in the superior left lung as above. Given the size, these are likely to have a benign etiology. If there are risk factors, consider follow-up scan in 12 months as below.
Pelvis X-ray: No acute fracture identified radiographically.
Social service was consulted and patient has bed at [facility] but developed fever and discharge on hold.
Fever(low-grade)
Sepsis POA
Patient recently discharged from [facility] and supposed to be on Augmentin.
Records from [facility] reviewed, patient was on Unasyn IV during hospitalization for concern of empyema.
Patient had thoracentesis done with clear pleural fluid
Augmentin resumed.
Patient still running fever.
Chest x-ray done showed:
Hazy opacification over both lower hemithoraces may represent layering pleural effusions. Although no gross focal parenchymal consolidation, pneumonia cannot be entirely excluded.
CT chest pending
Urine analysis negative.
Hyponatremia.
Continue to monitor
History of hypertension
- continue enalapril
History of hyperlipidemia
- continue rosuvastatin
History of anxiety/depression
- continue aripiprazole and lorazepam
History of PAD
s/p stent RLE
RLE edema with blistering
- wound care consult
History GERD
- continue pantoprazole
Anemia
hgb 8.5/hct 27.1
appears to baseline
- monitor CBC
CODE STATUS: DNR
DVT prophylaxis: Lovenox
Diet: Regular diet
Disposition: CT chest.
Total time spent on today's encounter was 65 minutes which included time spent in counseling the patient/family regarding diagnosis and treatment plan as listed above, goals of care, and symptom management. Case was discussed with nursing staff,
specialists, and care coordinators/case management. All labs and imaging personally reviewed by me. Remainder the time spent in detailed review of previous records, lab data, imaging, and other medical provider documentation.
Anticipated Discharge: 24 - 48 hours
Subjective/Interval History
-
Date of Service: January 08, 2025
Patient seen and examined at bedside, still complaining of generalized bodyaches, also had 1 episode of vomiting today, complaining of constipation, ordered MiraLAX.
Objective Data
-
Labs:
Laboratory Results
01/08/25
05:22
WBC 6.5
Hgb 7.8 L
Hct 24.7 L
Plt Count 372
Sodium 130 L
Potassium 4.4
Chloride 105
Carbon Dioxide 27
BUN 7
Creatinine 0.3 L
Glucose 94
Calcium 7.3 L
Vital Signs:
Vital Signs
Temp Pulse Resp BP Pulse Ox
99.4 F 94 16 126/81 99
01/08/25 07:40 01/08/25 08:40 01/08/25 08:40 01/08/25 07:40 01/08/25 08:40
I&O
01/07/25 01/08/25 01/09/25
06:59 06:59 06:59
Intake Total 780 / 780 1000 / 1000
Output Total 650 / 650
Balance 780 / 780 350 / 350
Physical Exam
-
General: Well Developed, Well Nourished, No Apparent Distress and Comfortable
HEENT: Normocephalic, Atraumatic, Moist Mucous Membranes, No Ptosis, PERRLA and Nose Appears Normal
Respiratory: Rales and Non Labored Respirations
Cardiac: Regular Rhythm and S1/S2
Breast: Deferred by me
GI: Soft, Nontender, Nondistended and Normal Bowel Sounds
Genito-urinary: No Costovertebral Tender
Musculoskeletal: No Clubbing, No Cyanosis, Edema, Right Lower Extrem and Edema, Left Lower Extrem
Skin: Warm
Neuro: Awake, Alert, Oriented, AO x 3 and No Motor Deficits
Psych: Calm
Data Reviewed
-
Diagnostic Radiology: Image personally visualized and interpreted and Report Reviewed by me
CT Scan: Image personally visualized and interpreted and Report Reviewed by me
Ultrasound: Image personally visualized and interpreted and Report Reviewed by me
MRI: Image personally visualized and interpreted and Report Reviewed by me
Medical Tests (Nuc Med, Echo etc): Image personally visualized and interpreted and Report Reviewed by me
Labs: Labs Reviewed by me
Old Records: Reviewed
[2025-01-08 15:25] VITALS: BP 105/71
[2025-01-08] MEDS: LOVENOX 40 MG SC (17:18)
[2025-01-08] MEDS: ABILIFY 4 MG PO (21:08)
[2025-01-08] MEDS: AMBIEN 10 MG PO (21:08)
[2025-01-08 22:57] VITALS: BP 124/73
[2025-01-08] MEDS: TYLENOL 650 MG PO (22:58)
[2025-01-09] MEDS: ROXICODONE 5 MG PO ×3 (03:55→16:34)
[2025-01-09] MEDS: ATIVAN 1 MG PO ×2 (04:11→21:34)
[2025-01-09 07:05] VITALS: BP 125/75
[2025-01-09] MEDS: FLOVENT 110 MCG INHALER 2 PUFF INH ×2 (07:41→20:22)
[2025-01-09] MEDS: PROTONIX 40 MG PO ×2 (08:07→19:59)
[2025-01-09] MEDS: ASPIR LOW (ENTERIC COATED) 81 MG PO (08:07)
[2025-01-09] MEDS: CLARITIN 10 MG PO (08:07)
[2025-01-09] MEDS: VASOTEC 20 MG PO (08:07)
[2025-01-09] MEDS: AUGMENTIN 875 MG/125 MG 1 TABLET PO (08:07)
[2025-01-09] MEDS: CRESTOR 40 MG PO (08:07)
[2025-01-09] MEDS: FLEXERIL 10 MG PO ×2 (08:22→20:08)
[2025-01-09 09:38] VITALS: BP 117/75; PULSE 97; O2SAT 100
[2025-01-09 10:52] LABS: Iron 23 ug/dl (37-170)
[2025-01-09 11:01] LABS: Total Iron Binding Capacity 180 ug/dl (265-497)
[2025-01-09 11:11] LABS: Vitamin D, 25-OH*** 17.1 ng/mL (30-80)
[2025-01-09 11:28] LABS: Ferritin 31.4 ng/ml (11.1-264.0)
[2025-01-09 11:29] LABS: Hematocrit 27.4 % (37.0-47.0); Hemoglobin 8.5 g/dL (12.0-16.0); Mean Corp Hgb Conc. 31.0 g/dL (33.0-37.0); Mean Corpuscular Volume 94.8 fL (81.0-99.0); Platelet Count 410 10^3/uL (130-400); Red Cell Dist. Width 16.3 % (11.5-14.5)
[2025-01-09 11:43] LABS: Vitamin B12 876 pg/ml (239-931)
--- NOTE | 2025-01-09 11:45 | W.PN.UPDATE ---
Update Note
Progress Note Update
Old records from [facility]
Admission on 12/17/2024-discharge on 01/03/2025
Patient presented to [facility] on 12/08/2024 with hematemesis. Status post EGD on 12/09/2024 with gastric decompression and large ulceration. Patient was transferred to [facility] on 12/09/2024. CT abdomen and pelvis on 12/10/2024
showed large hiatal hernia and gastric volvulus with large area of ulceration.
Patient underwent hiatal hernia reduction with mesh , cruroplasty and gastropexy for large hiatal hernia complicated by gastric volvulus on 12/10/2024.
Patient was discharged on 12/13/2024 and returned to [facility] on 719 for continued emesis. Patient was found to have esophageal distention and large loculated fluid collection in the posterior mediastinum was transferred to [facility]. She
was on pressors.
Patient received 6 days of cefepime, 8 days of fluconazole, Flagyl and started on cephalexin per ID on 12/29/2024.
TTE -ejection fraction 60 to 65%
Reportedly also treated for right lower extremity cellulitis
ID notes from 01/18/2025 states that there was concern for empyema as cause of her fevers and changed antibiotics to Unasyn in the hospital and to Augmentin at discharge.
Patient was also found to have acute pyelonephritis
Patient is listed for allergic to penicillin but tolerated Augmentin
CT scan abdomen and pelvis with contrast on 12/18/2024 distal paraesophageal fluid collection at the site of recent hernia repair silhouetting with paramedial components of bilateral partially loculated pleural effusions
Postsurgical changes of hiatal hernia repair with gastropexy noting edema of the excess expansile fat about the level of the diaphragmatic hiatus and the tube loops with contrast-filled esophagus. Diffuse fluid-filled dilated loops of small and
large bowel with circumferential mural thickening suggestive ileus and enterocolitis. Rectal tube in situ. Striated left renal nephrogram may be seen with acute pyelonephritis. Significant mesenteric edema and severe generalized body wall edema.
Small bilateral pleural effusions right greater than left with bibasilar atelectasis. Improved mild ill-defined pulmonary groundglass opacity suggesting of resolving infectious/inflammatory process.
CT abdomen and pelvis with contrast on 12/29/2024-diffuse long segment colitis differential diagnoses include infectious, inflammatory and less likely ischemic etiologies. Esophagitis. Diffuse dilatation of the patulous thoracic esophagus which is
fluid-filled and contains debris likely dysmotility. No evidence for tight fundoplication wrap. Decrease in the size of right paraesophageal fluid collection-likely hematoma. Anasarca with bilateral pleural effusions, small volume ascites and
diffuse body wall edema. Worsening bilateral striated nephrograms suggestive of acute pyelonephritis. Distended urinary bladder without hydroureteronephrosis. Moderate calcification of the abdominal aorta and iliofemoral arteries including ostial
celiac artery and SMA. Osteoporosis with several vertebral compression deformities. Anasarca. Locules of gas in the collapsed left lower lobe and or in the contiguous pleural space worrisome for pulmonary infection or laceration, probably with a
trace loculated occult pneumothorax.
CT chest with contrast on 12/29/2024 interval worsening of loculated moderate right and small left pleural effusions with multisegmental posterior lower lobe atelectasis. Aerated lungs demonstrate features of mild interstitial edema with upper lobe
predominant and mild centrilobular emphysema with bronchial wall and interlobular septal thickening.
Redemonstration of the hiatal hernia with fluid-filled expansile bowel hernial sac with edematous vasquez of the distal two thirds of the esophagus noted. Unchanged with the prior study. Fluid and debris's noted in the thick-walled patulous
esophagus.
There was a large amount of paperwork sent over without any discharge summaries from either admissions. Random notes, medications and some radiology reports
[2025-01-09 11:46] LABS: Blood Urea Nitrogen 6 mg/dl (7-17); Calcium 7.6 mg/dl (8.4-10.2); Carbon Dioxide 28 mmol/L (22-30); Chloride 104 mmol/L (98-107); Estimated Creatinine Clearance 74 ml/min; Glucose 111 mg/dl (70-99); Potassium 4.3 mmol/L (3.5-5.1); Sodium 132 mmol/L (135-145); eGFR > 60.00
--- NOTE | 2025-01-09 12:21 | W.PN.HOSP.TC ---
Today's Communication/Plan
-
Ct A/P
ID eval
Blood CX
Assessment / Plan
Assessment / Plan
64-year-old female with recent admission to [facility]. Per history patient went to [facility] on 172 with hematemesis. She had a EGD done there on 12/09/2024 withn gastric depression compression and which showed a large
ulceration. Patient was transferred to [facility] on 12/09/2024. CT abdomen and pelvis on 12/10/2024 showed large hiatal hernia with gastric volvulus and large area of ulceration. Patient underwent hiatal hernia reduction with mesh,
cruroplasty, gastropexy for large hiatal hernia complicated by gastric volvulus.Dr Harvey did her surgery. She was discharged on 12/13/2024 and came to [facility] on 12/17/2024 for continued emesis. She had a loculated fluid collection and
esophageal distention and was transferred to [place]. Patient was on pressors at that time. From what I can understand she was treated with broad-spectrum antibiotics including cefepime, fluconazole, Flagyl and antibiotics were then changed to
cephalexin and eventually to Augmentin at discharge. Unclear what was treated questionable pyelonephritis, questionable leak from the esophagus. There is also mention about right lower extremity cellulitis.. Patient came to [facility]
with a questionable fall this time and was found to have fevers.
CT of the chest-markedly limited secondary to lack of IV contrast. In combination with distended stomach containing large volume of food material emptied and comparison to the recent chest CT, there is soft tissue prominence in the posterior
mediastinum which may be in part secondary to some food burial in the distal thoracic esophagus, proximal thoracic esophagus is not distended. Cannot exclude mass/lymphadenopathy of the posterior mediastinum. New small bilateral pleural effusions
with accompanying bilateral lower lobe opacification most likely representing subsegmental atelectasis.
Patient is awake alert oriented sitting in a chair
Cardiovascular system S1-S2 appreciated
Chest clear to auscultation
Abdomen soft and nontender laparoscopy scars-stable bowel sounds are present
Lower extremity no edema from knee down, skin breaks noted on both legs, no redness
Neuroexam is nonfocal
# Fever-blood cultures negative from 01/06/2025. Patient was restarted on amoxicillin which she was discharged on
Check blood cultures
Urinalysis-not indicative of infection
Abnormal CT of the chest-check CT of the abdomen and pelvis. Keep n.p.o till CT
ID eval
If CT A/P ordered, if abnormal will request surgery eval
I do not think lower extremity cellulitis is the source of infection
Patient apparently was treated at [facility] for pyelonephritis questionable esophageal leak? Unclear from the papers that was sent to us.
# Recent admission to [facility] for septic shock secondary to gastric volvulus secondary to hiatal hernia status post repair and gastropexy -continue PPI
# Mechanical fall-mechanical secondary to deconditioning
# Anemia-likely secondary to recent illness
# Hyponatremia-check serum and urine osmolality and urine sodium
# Hypertension-on enalapril 20 mg as outpatient
# Hyperlipidemia/atherosclerosis--continue Crestor, aspirin
# Peripheral artery disease history of bypass surgery right lower extremity in 2022
# Right lower extremity blistering and edema-wound care consulted. Continue daily dressings with Luis bandages
# Asthma-continue Asmanex or equivalent, albuterol as needed
# Anxiety and depression-continue Abilify, lorazepam
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
# Insomnia-continue Ambien
# Hypoalbuminemia
# Active smoker-cessation counseling
# DVT prophylaxis-Lovenox
# DNR
Discussed with staff that we need to get discharge summary from both admissions at [facility] continue the summary of events and the plan. From the documents that we have from [facility] it is very hard to determine what was done for her as these are
random notes, radiology findings, medicines, labs etc. only. No discharge summaries.
Time spent 75 minutes
Part of this note was created using voice recognition system. Occasional wrong word or��sound alike� substitutions may have inadvertently occurred due to the inherent limitations of voice recognition software. If noted kindly bring it to my
attention for correction.
Anticipated Discharge: > 48 hours
Subjective/Interval History
-
Date of Service: January 09, 2025
Objective Data
-
Labs:
Laboratory Results
01/09/25
11:14
WBC 6.2
Hgb 8.5 L
Hct 27.4 L
Plt Count 410 H
Sodium 132 L
Potassium 4.3
Chloride 104
Carbon Dioxide 28
BUN 6 L
Creatinine 0.4 L
Glucose 111 H
Calcium 7.6 L
Vital Signs:
Vital Signs
Temp Pulse Resp BP Pulse Ox
98.6 F 93 16 125/75 95
01/09/25 07:05 01/09/25 07:44 01/09/25 07:44 01/09/25 07:05 01/09/25 07:44
I&O
01/08/25 01/09/25 01/10/25
06:59 06:59 06:59
Intake Total 1000 / 1000 120 / 120
Output Total 650 / 650
Balance 350 / 350 120 / 120
[2025-01-09] MEDS: FEOSOL 325 MG PO (12:42)
[2025-01-09] MEDS: OMNIPAQUE 50 ML PO (12:42)
--- NOTE | 2025-01-09 13:41 | CON.ID ---
Consultation
-
Date/Time Consultation Requested: January 09, 2025 1218
Date/Time Consultation Performed: January 09, 2025 1340
Requesting Provider: Dr. Eileen Burt
Performing Provider: Dr. Ne Aponte
Reason for Consultation: Fever
Chief Complaint / Past History
Chief Complaint
Fall
History of Present Illness
History obtained review of outside medical records as well as from the patient. 64-year-old female with history of PAD, COPD, recent hospitalization at [facility], discharged to home January 03 who presented to the ED on January 05 after a fall. She
recently developed gastric volvulus from large hiatal hernia requiring hiatal hernia repair and gastropexy at [facility] on December 10, 2024. She was discharged to home on December 13 but presented to ER on December 17 with shock and hematemesis. CAT scan
showed probable acute intraluminal hemorrhage in distal esophagus and gastric, large loculated fluid in the posterior mediastinum at site of recent hiatal hernia repair. She was transferred to [facility]. Hemoglobin was 6 requiring
2 units of blood transfusion. She was placed on vancomycin, cefepime, metronidazole, and fluconazole for possible esophageal leak/perforation. Chest CT ruled out a leak. She was febrile 720, 12/26, 12/27, 12/28, 12/29 Blood cultures negative. UA
negative. RSV/COVID-negative. Sputum light growth of normal oral barbara. C. diff neg. Neg DVT. [facility] CT showed sinusitis, right paraesophageal fluid collection likely hematoma which has decreased, esophagitis, distended esophagus filled with debris
and fluid, diffuse fluid-filled, dilated loops of small and large bowel with circumferential mural thickening suggesting ileus with enterocolitis, significant mesenteric edema and body wall edema, small bilateral pleural effusions. 12/23, antibiotics
de-escalated to cephalexin for possible RLE cellulitis. She was seen by multiple specialties including pulmonary, thoracic, GI. 12/30 she was seen by ID who recommended Unasyn in hospital then outpt Augmentin for possible empyema. Patient refused
rehab and therefore she was discharged to home on January 03. She felt weak at home. She ran into the wall and fell. Initially afebrile at ED. C-spine CAT scan and head CT no acute pathology. Chest x-ray possible layering pleural effusions.
The next hospital stay, patient starting having fevers up to 101.4. January [address] shows a small bilateral pleural effusions, distended stomach containing large volume fluid material, soft tissue prominence in the posterior mediastinum along
with some fluid density representing possible food material. she currently remains on outpatient Augmentin. Patient thinks fever is from sinusitis. She has history of sinusitis in the past. Positive head congestion. No nasal discharge. No
maxillary dental pain. She denies cough or shortness of breath. No nausea or vomiting. She denies aspiration while eating. No abdominal pain or diarrhea. No dysuria, urgency, frequency or flank pain. No hip pain. No ill contacts.
Past History
Additional Past Medical History:
Hypertension
Dyslipidemia
COPD/asthma
Anxiety/depression
Sinusitis
Gastric volvulus s/p Hiatal hernia repair with cruroplasty, mesh placement, and gastropexy at [facility] 12/10/24
PAD s/p R fem to above knee popliteal bypass (06/2022)
R THR
RLE wounds
Sinus surgeries
Allergy History:
Penicillins Allergy (Verified 12/17/24 13:36)
Unknown
Sulfa (Sulfonamide Antibiotics) Allergy (Verified 12/17/24 13:36)
Unknown
Medications Reviewed: Yes
Current Antibiotics:
Augmentin
Social History
Tobacco: Smoker (Daily)
Alcohol: None
Drug: Marijuana (Occasional)
Living: Alone
Family History
Family History: Not Pertinent
Review of Systems
Review of Systems
General: Negative Chills or Change in Appetite
HEENT: Sinus Problems; Negative Headache or Pharyngitis
Cardiovascular: Negative Chest Pain or Dyspnea
Respiratory: Negative Dyspnea or Cough
Gasteroenterology: Negative Nausea, Vomiting or Diarrhea
Genital / Urological: Negative Dysuria or Flank Pain
Hematologic: Impaired Wound Healing
Endocrine: Weakness
Neurological: Negative Dizziness
All systems: All other systems were reviewed and were negative
Vital Signs
Temp Pulse Resp BP Pulse Ox
98.6 F 93 16 125/75 95
01/09/25 07:05 01/09/25 07:44 01/09/25 07:44 01/09/25 07:05 01/09/25 07:44
Selected Entries
01/08/25
22:57
Temp 101.2 F H
Physical Exam
Physical Exam
Constitutional: No Acute Distress and Comfortable
Head: Other (Mild bilateral maxillary sinus tenderness)
Eyes: No Conjunctival Hemorrhage and Sclera Anicteric
Cardiovascular: Regular Rate and S1/S2
Pulmonary: Non Labored and Other (Decreased breath sounds at the bases)
Gastrointestinal: Soft, Non Tender, Non Distended and Normal Bowel Sounds
Genito-Urinary: Negative CVA Tenderness
Extremities: Edema (BLE ) and Venous Insufficiency (BLE)
Wound: Other (RLE wound with granulating tissue)
Neurological: AO x 3
Lab / Diagnostic Study Results
01/09/25 11:14
01/09/25 11:14
Abs Immat Gran (auto) 0.3 10^3/uL (0-0.05) H 01/05/25 12:43
Absolute Neuts (auto) 5.0 10^3/uL (1.4-6.5) 01/05/25 12:43
Absolute Lymphs (auto) 2.1 10^3/uL (1.2-3.4) 01/05/25 12:43
Absolute Monos (auto) 0.7 10^3/uL (0.1-0.6) H 01/05/25 12:43
Absolute Basos (auto) 0.1 10^3/uL (0-0.2) 01/05/25 12:43
Immature Gran % 3.3 % (0-0.5) H 01/05/25 12:43
Neutrophils % 61.5 % (42.2-75.2) 01/05/25 12:43
Lymphocytes % 25.9 % (20.5-51.1) 01/05/25 12:43
Monocytes % 8.7 % (1.7-9.3) 01/05/25 12:43
Eosinophils % 0.0 % (0-6) 01/05/25 12:43
Basophils % 0.6 % (0-2) 01/05/25 12:43
Ur Squamous Epith Cells 0-2 /LPF (Few) 01/07/25 18:57
Microbiology Results
Micro:
01/09/25 11:59 Blood Culture - Pending
Blood/Venous
01/09/25 11:14 Blood Culture - Pending
Blood/Venous
01/06/25 09:28 Blood Culture - Preliminary
Blood/Venous No Growth in 72 hours- Final report to follow
01/06/25 09:00 Blood Culture - Preliminary
Blood/Venous No Growth in 72 hours- Final report to follow
01/05/25 23:53 MRSA Screen - Final
Nose No Methicillin Resistant Staphylococcus aureus isolated.
01/08/25 CT Chest: Markedly limited evaluation without intravenous contrast. In combination with distended stomach containing large volume fluid material emptied in comparison to recent prior chest CT, there is soft tissue prominence in the posterior
mediastinum which may in part represent some food material in the distal thoracic esophagus, proximal thoracic esophagus is not distended. CANNOT EXCLUDE MASS/LYMPHADENOPATHY OF THE POSTERIOR MEDIASTINUM. Is there a history of dysphasia? New small
bilateral pleural effusions with accompanying bilateral lower lobe opacification most likely representing subsegmental atelectasis.
Assessment / Plan
# Fever
# Fevers 12/18 - 12/29 at OSH without clear infectious source (work-up neg)
# Recent intraluminal hematoma/hemorrhage (7/19) post hiatal hernia repair and gastropexy for gastric volvolus at [facility] (12/10)
- UA neg
- blood cx's neg to date
-Possible source of fever sinusitis vs aspiration pneumonitis (CT with chest with probable food in esophagus and large volume liquid in stomach)
- Broaden Augmentin to meropenem for now.
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
Hypertension
Dyslipidemia
COPD/asthma
Anxiety/depression
Sinusitis
Gastric volvulus s/p Hiatal hernia repair with cruroplasty, mesh placement, and gastropexy at [facility] 12/10/24
PAD s/p R fem to above knee popliteal bypass (06/2022)
R THR
RLE wounds
Sinus surgeries
[2025-01-09 15:02] VITALS: BP 154/90
--- NOTE | 2025-01-09 15:58 | CM ---
CM reviewed chart, reviewed with Hospitalist, not stable for d/c at this time. Updates to [facility] on discharge status. MICHAEL campo. Will continue to follow for all discharge planning needs.
Plan; [facility] SNF when stable
[facility]
Report: [phone]
[2025-01-09] MEDS: DRISDOL (VITAMIN D2) 50000 UNITS PO (16:32)
[2025-01-09] MEDS: LOVENOX 40 MG SC (17:11)
[2025-01-09] MEDS: STERILE WATER FOR INJECTION 10 ML IV ×2 (17:11→23:00)
[2025-01-09] MEDS: MERREM 500 MG IV ×2 (17:12→23:00)
--- NOTE | 2025-01-09 17:34 | W.PN.UPDATE ---
Update Note
Progress Note Update
clears for now.
IR contacted to see if this can be drained
Bowel regimen
Keep on clears for now
[2025-01-09] MEDS: MILK OF MAGNESIA 30 ML PO (17:55)
[2025-01-09] MEDS: MIRALAX 17 GRAMS PO (17:55)
[2025-01-09] MEDS: SENOKOT 17.2 MG PO (19:59)
[2025-01-09] MEDS: AMBIEN 10 MG PO (21:31)
[2025-01-09] MEDS: ABILIFY 4 MG PO (21:32)
[2025-01-09 23:31] VITALS: BP 118/73
[2025-01-10] MEDS: ROXICODONE 5 MG PO ×5 (01:01→20:32)
[2025-01-10] MEDS: STERILE WATER FOR INJECTION 10 ML IV ×2 (05:14→11:49)
[2025-01-10] MEDS: MERREM 500 MG IV ×2 (05:14→11:50)
[2025-01-10 06:44] LABS: Hematocrit 26.4 % (37.0-47.0); Hemoglobin 8.2 g/dL (12.0-16.0); Mean Corp Hgb Conc. 31.1 g/dL (33.0-37.0); Mean Corpuscular Volume 95.7 fL (81.0-99.0); Platelet Count 378 10^3/uL (130-400); Red Cell Dist. Width 16.3 % (11.5-14.5)
[2025-01-10 07:00] VITALS: BP 122/77
[2025-01-10 07:08] LABS: Blood Urea Nitrogen 6 mg/dl (7-17); Calcium 7.7 mg/dl (8.4-10.2); Carbon Dioxide 28 mmol/L (22-30); Chloride 103 mmol/L (98-107); Estimated Creatinine Clearance 74 ml/min; Glucose 84 mg/dl (70-99); Potassium 4.6 mmol/L (3.5-5.1); Sodium 131 mmol/L (135-145); eGFR > 60.00
[2025-01-10] MEDS: VASOTEC 20 MG PO (07:48)
[2025-01-10] MEDS: CLARITIN 10 MG PO (07:50)
[2025-01-10] MEDS: ASPIR LOW (ENTERIC COATED) 81 MG PO (07:50)
[2025-01-10] MEDS: SENOKOT 17.2 MG PO ×2 (07:50→20:26)
[2025-01-10] MEDS: VITAMIN D3 (cholecalciferol) 50 MCG PO (07:50)
[2025-01-10] MEDS: PROTONIX 40 MG PO ×2 (07:51→20:26)
[2025-01-10] MEDS: FEOSOL 325 MG PO (07:51)
[2025-01-10] MEDS: FLOVENT 110 MCG INHALER 2 PUFF INH ×2 (07:55→19:38)
[2025-01-10] MEDS: ATIVAN 1 MG PO ×2 (07:57→22:09)
[2025-01-10] MEDS: CRESTOR 40 MG PO (08:49)
--- NOTE | 2025-01-10 09:41 | W.PN.UPDATE ---
Update Note
Progress Note Update
Per radiologist CT is good enough and no leak noted from the esophagus. Barium esophagram not needed therefore discontinued.
Will consult CT surgery to comment on the collection
[2025-01-10] MEDS: MIRALAX 17 GRAMS PO (10:02)
--- NOTE | 2025-01-10 11:44 | W.PN.ID1 ---
Date of Service
Date of Service: January 10, 2025
Today's Communication
Transition meropenem to levofloxacin 750mg po daily and metrondiazole 500mg po bid x 14 days.
Assessment / Plan
# Fever (while on Augmentin), resolving
# Fevers 12/18 - 12/29 at OSH without clear infectious source (work-up neg)
# Recent intraluminal hematoma/hemorrhage (12/17) post hiatal hernia repair and gastropexy for gastric volvolus at [place] (12/10)
- UA neg
- blood cx's neg to date
- Repeat CT a/p; decreased in size of rim enhancing collection lateral to distal esophagus
-Possible source of fever sinusitis vs aspiration pneumonitis vs residual hematoma at distal esophagus site
- Transition meropenem to levofloxacin 750mg po daily and metrondiazole 500mg po bid x 14 days.
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
Hypertension
Dyslipidemia
COPD/asthma
Anxiety/depression
Sinusitis
Gastric volvulus s/p Hiatal hernia repair with cruroplasty, mesh placement, and gastropexy at [place] 12/10/24
PAD s/p R fem to above knee popliteal bypass (06/2022)
R THR
RLE wounds
Sinus surgeries
Chief Complaint
-: Fever
Subjective / Review of Systems
Feels well. Asking for discharge.
Vital Signs / Physical Exam
Vital Signs
Vital Signs
Temp Pulse Resp BP Pulse Ox
99.4 F 94 16 122/77 98
01/10/25 07:00 01/10/25 07:58 01/10/25 07:58 01/10/25 07:00 01/10/25 07:58
Physical Exam
Constitutional: No Acute Distress
Head: Other (No frontal or maxillary sinus tenderness)
Eyes: Sclera Anicteric
Cardiovascular: Regular Rate and S1/S2
Pulmonary: Other (Decreased BS at bases)
Gastrointestinal: Soft, Non Tender, Non Distended and Normal Bowel Sounds
Extremities: Edema (BLE)
Wound: Other (RLE wounds clean do not look infected)
Neurological: AO x 3
Objective Data
Lab Data
Lab Results
01/10/25 06:04
01/10/25 06:04
Estimated Creat Clear 74 ml/min 01/10/25 06:04
Total Bilirubin 0.3 mg/dl (0.2-1.3) 01/07/25 09:31
AST 32 U/L (14-36) 01/07/25 09:31
ALT 28 U/L (0-35) 01/07/25 09:31
Alkaline Phosphatase 94 U/L (38-126) 01/07/25 09:31
Most recent labs reviewed.
Micro Results:
01/09/25 11:14 Blood Culture - Preliminary
Blood/Venous No Growth in 24 hours- Final report to follow
01/06/25 09:28 Blood Culture - Preliminary
Blood/Venous No Growth in 4 days- Final report to follow
01/06/25 09:00 Blood Culture - Preliminary
Blood/Venous No Growth in 4 days- Final report to follow
01/09/25 11:59 Blood Culture - Pending
Blood/Venous
01/05/25 23:53 MRSA Screen - Final
Nose No Methicillin Resistant Staphylococcus aureus isolated.
01/09/25 CT a/p : 4.6 cm rim-enhancing fluid collection right lateral to the distal esophagus status post recent hiatal hernia repair. This may represent an abscess in the setting of fever. The fluid collection has decreased in size compared to 11.[address] from 12/17/2024. Small bilateral pleural effusions.
01/08/25 CT Chest: Markedly limited evaluation without intravenous contrast. In combination with distended stomach containing large volume fluid material emptied in comparison to recent prior chest CT, there is soft tissue prominence in the posterior
mediastinum which may in part represent some food material in the distal thoracic esophagus, proximal thoracic esophagus is not distended. CANNOT EXCLUDE MASS/LYMPHADENOPATHY OF THE POSTERIOR MEDIASTINUM. Is there a history of dysphasia? New small
bilateral pleural effusions with accompanying bilateral lower lobe opacification most likely representing subsegmental atelectasis.
Care Review
Plan reviewed with: Physician (Dr. Burt)
[2025-01-10] MEDS: CITROMA 300 ML PO (11:50)
--- NOTE | 2025-01-10 12:56 | CM ---
CM reviewed chart, patient seen bedside. Patient discussed plan was for her to discharge to [facility] for SNF. Patient now prefers to return home with [facility]. Patient reports she lives alone in an apartment, second floor, elevator
access, handicap accessible, guard rails in bathroom. CM will send referral to Eyad MOLINA. CM will continue to follow for all discharge planning needs.
Plan; pt now looking for VN and not SNF, ref to [facility]
--- NOTE | 2025-01-10 13:11 | W.PN.HOSP.TC ---
Today's Communication/Plan
-
Patient now on p.o. antibiotics
Discharge planning per case management
Physical therapy is recommending a rehab however patient told me that she may be going home.
I have messaged case management to make discharge plans.
Assessment / Plan
Assessment / Plan
64-year-old female with recent admission to [facility]. Per history patient went to [facility] on 172 with hematemesis. She had a EGD done there on 12/09/2024 withn gastric depression compression and which showed a large
ulceration. Patient was transferred to [facility] on 12/09/2024. CT abdomen and pelvis on 12/10/2024 showed large hiatal hernia with gastric volvulus and large area of ulceration. Patient underwent hiatal hernia reduction with mesh,
cruroplasty, gastropexy for large hiatal hernia complicated by gastric volvulus.Dr Harvey did her surgery. She was discharged on 12/13/2024 and came to [facility] on 12/17/2024 for continued emesis. She had a loculated fluid collection and
esophageal distention and was transferred to [place]. Patient was on pressors at that time. From what I can understand she was treated with broad-spectrum antibiotics including cefepime, fluconazole, Flagyl and antibiotics were then changed to
cephalexin and eventually to Augmentin at discharge. Unclear what was treated questionable pyelonephritis, questionable leak from the esophagus. There is also mention about right lower extremity cellulitis.. Patient came to [facility]
with a questionable fall this time and was found to have fevers.
CT of the chest-markedly limited secondary to lack of IV contrast. In combination with distended stomach containing large volume of food material emptied and comparison to the recent chest CT, there is soft tissue prominence in the posterior
mediastinum which may be in part secondary to some food burial in the distal thoracic esophagus, proximal thoracic esophagus is not distended. Cannot exclude mass/lymphadenopathy of the posterior mediastinum. New small bilateral pleural effusions
with accompanying bilateral lower lobe opacification most likely representing subsegmental atelectasis.
CT abdomen and pelvis-4.6 cm rim-enhancing fluid collection right lateral to the distal esophagus status post recent hiatal hernia repair. May represent an abscess in the setting of fever fluid collection has decreased in size from 11.6 cm since
12/17/2024. Small bilateral pleural effusions. Large volume colonic stool indicating constipation. Chronic degenerative changes of spine bilateral SI joints left hip, symphysis pubis. Dextroscoliosis. Multiple chronic thoracolumbar fractures
Patient is awake alert oriented sitting in a chair
Cardiovascular system S1-S2 appreciated
Chest clear to auscultation
Abdomen soft and nontender laparoscopy scars-stable bowel sounds are present
Lower extremity no edema from knee down, skin breaks noted on both legs, no redness
Neuroexam is nonfocal
# Fever-blood cultures negative from 01/06/2025.
Bld Cx neg
Urinalysis-not indicative of infection
Source of infection unclear possible sinusitis versus aspiration pneumonitis versus residual hematoma at GE site
CT shows that the size of the collection is decreased
Discussed with radiology no leak seen on CT. Esophagram discontinued per discussion with radiology
CT surgery consulted however deferred to Dr. Dixon.
Discussed with infectious disease antibiotics changed to p.o. for 2 weeks and patient needs to follow-up with Dr. Harvey as outpatient
# Constipation-magnesium citrate ordered
# Recent admission to [facility] for septic shock secondary to gastric volvulus secondary to hiatal hernia status post repair and gastropexy -continue PPI
# Mechanical fall-mechanical secondary to deconditioning
# Anemia-likely secondary to recent illness
# Hyponatremia-likely SIADH. Lasix IV today
# Hypertension-on enalapril 20 mg as outpatient
# Hyperlipidemia/atherosclerosis--continue Crestor, aspirin
# Peripheral artery disease history of bypass surgery right lower extremity in 2022
# Right lower extremity blistering and edema-wound care consulted. Continue daily dressings with Luis bandages
# Asthma-continue Asmanex or equivalent, albuterol as needed
# Anxiety and depression-continue Abilify, lorazepam
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
# Insomnia-continue Ambien
# Hypoalbuminemia
# Active smoker-cessation counseling
# DVT prophylaxis-Lovenox
# DNR
Case discussed with infectious disease, radiology, Dr. Dixon
Called office to fill in and to request an appt, to get connected to took more than 25 min !
Finally operative management to Dr. Thomas on phone. He was not at the hospital and did not have records in front of him.
He stated that patient almost left AMA last time she was not quite ready they did not quite figure out a source of fever. He wanted her to come back to this clinic 2 days later and to have a esophagram but she did not keep that appointment. He
does not have the shot in front of him but he thinks that Gram stain and cultures were negative but not completely sure. He will be happy to see her in the clinic this after discharge his office will contact her to get an appointment.
D/W Case management
time spent over 50 min
Part of this note was created using voice recognition system. Occasional wrong word or��sound alike� substitutions may have inadvertently occurred due to the inherent limitations of voice recognition software. If noted kindly bring it to my
attention for correction.
Anticipated Discharge: Within 24 hours
Subjective/Interval History
-
Date of Service: January 10, 2025
Objective Data
-
Labs:
Laboratory Results
01/10/25
06:04
WBC 5.9
Hgb 8.2 L
Hct 26.4 L
Plt Count 378
Sodium 131 L
Potassium 4.6
Chloride 103
Carbon Dioxide 28
BUN 6 L
Creatinine 0.3 L
Glucose 84
Calcium 7.7 L
Vital Signs:
Vital Signs
Temp Pulse Resp BP Pulse Ox
99.4 F 94 16 122/77 98
01/10/25 07:00 01/10/25 07:58 01/10/25 07:58 01/10/25 07:00 01/10/25 07:58
I&O
01/09/25 01/10/25 01/11/25
06:59 06:59 06:59
Intake Total 120 / 120
Balance 120 / 120
[2025-01-10] MEDS: LASIX 20 MG IV (13:26)
[2025-01-10] MEDS: LEVAQUIN 750 MG PO (13:26)
[2025-01-10] MEDS: FLAGYL 500 MG PO ×2 (13:26→20:26)
--- NOTE | 2025-01-10 13:38 | W.PN.UPDATE ---
Addendum entered and electronically signed by Eileen Burt MD 01/10/25 18:06:
stage 1 Sacral PI POA
Original Note:
Update Note
Progress Note Update
Per case management patient does not want to go to rehab therefore she will be discharged home. Physical therapy to reevaluate her today
--- NOTE | 2025-01-10 14:10 | PN.CDI ---
Addendum entered and electronically signed by Eileen Burt MD 01/10/25 18:05:
Documentation is complete at this time.
Original Note:
CDI
- -
CDI:
Physician Documentation Request
Admit Date: 01/07/25 13:13
Dear Doctor Javed,
Clinical Indicators:
The diagnosis of Sepsis was documented on 01/08, but is not consistently noted in subsequent documentation.
01/08 PN, 'Sepsis, POA'
01/10 PN,'Fever...Source of infection unclear possible sinusitis versus aspiration pneumonitis versus residual hematoma at GE site...Discussed with infectious disease antibiotics changed to p.o. for 2 weeks...'
Temp trend on admission:
01/05/25
12:19 01/06/25
08:00 01/06/25
16:00
Temp 98.5 F 100.6 F H 101.4 F H
HR/RR trend on admission:
01/05/25
12:19 01/05/25
13:00 01/05/25
13:45
Pulse 97 95 96
Resp Rate 25 28 24
01/05/25
14:33 01/05/25
15:45 01/05/25
16:45
Pulse 92 91 94
Resp Rate 28 29 21
Please clarify the following:
Sepsis was present on admission and is now resolved.
Sepsis was ruled out.
Other, please specify
Use of terms such as suspected, likely, concern for, or probable (associated with a specific diagnosis that is being evaluated, monitored, or treated as if it exists) are acceptable and can be coded in the inpatient setting, when documented at the
time of discharge.
Thank you,
TANIA Banda RN
CDI Specialist
available via tiger text
Please use your independent medical judgment in providing your response.
--- NOTE | 2025-01-10 14:21 | PN.CDI ---
CDI
- -
CDI:
Physician Documentation Request
Admit Date: 01/07/25 13:13
Dear Doctor Javed,
Clinical Indicators:
Patient admitted with mechanical fall, due to deconditioning.
01/06 WOC RN skin/wound assessment: Sacrum Stage 1 Pressure Injury, POA
Treatment: Silicone border foam dressing
Physician documentation of the type and location of wounds is required for compliant documentation. Based on the above clinical findings and your assessment, please provide the following in your progress note:
1. Location of the ulcer/wound, including laterality.
2. Type (etiology) of ulcer/wound:
- Pressure (decubitus) ulcer
- Other, please specify
3. If a pressure ulcer, please also include the stage* of the ulcer:
- Stage 1 - Skin intact, non-blanchable redness
- Stage 2 - Partial thickness loss of dermis, includes intact or open blister
- Stage 3 - Full thickness tissue not including bone, tendon or muscle
- Stage 4 - Full thickness tissue loss, including exposed bone, tendon or muscle
- Unstageable - Full thickness loss in which the base of the ulcer is covered by slough (yellow, minor, sanchez, green or brown) and/or eschar (minor, brown or black) in the wound bed.
- Unable to determine
Use of terms such as suspected, likely, concern for, or probable (associated with a specific diagnosis that is being evaluated, monitored, or treated as if it exists) are acceptable and can be coded in the inpatient setting, when documented at the
time of discharge.
Thank you,
TANIA Banda RN
CDI Specialist
available via tiger text
Please use your independent medical judgment in providing your response.
*Source: National Pressure Ulcer Advisory Panel (NPUAP)
[2025-01-10 15:00] VITALS: BP 96/61
[2025-01-10] MEDS: NEURONTIN 300 MG PO ×2 (15:47→22:01)
--- NOTE | 2025-01-10 16:37 | CON.SURG ---
Surgical Consultation
-
The patient is a 64-year-old woman who underwent hiatal hernia repair at [facility] on November 10, 2024. Subsequently, the patient presented to the [facility] ED on December 10, 2024, with signs and symptoms of sepsis. The patient
was transferred to [facility]. According to the patient, she had a left pleural effusion drained and was discharged home. On January 05, 2025, she was admitted to [facility] after a fall. On 01/08/25, she had a chest CT,
showing bilateral pleural effusion. She denied chest pain and dyspnea. Her past medical history is significant for hypertension, anemia, peripheral arterial disease, anxiety, hiatal hernia repair, and status post repair. The patient is allergic to
penicillin and sulfa drugs.
Physical examination: Head, neck, and throat were normal. There were decreased breath sounds in the bases of her lungs. The heart had a regular rhythm and rate.
A/P: Pleural effusion after hiatal hernia repair at [facility].
This may represent normal postoperative changes. The best person to address this issue is her surgeon at [facility]. If the patient is medically stable, I would discharge the patient and make sure she follows up with her surgeon at [facility]. If the patient is
not medically stable, I would transfer the patient to [facility] for further evaluation and care.
Above d/w Dr. Burt and the patient.
[2025-01-10] MEDS: LOVENOX 40 MG SC (17:06)
[2025-01-10] MEDS: ABILIFY 4 MG PO (22:01)
[2025-01-10] MEDS: AMBIEN 10 MG PO (22:06)
[2025-01-10 23:18] VITALS: BP 93/59
[2025-01-11] MEDS: ROXICODONE 5 MG PO ×3 (05:50→14:08)
[2025-01-11] MEDS: FLEXERIL 10 MG PO (06:02)
[2025-01-11 07:00] VITALS: BP 119/67
[2025-01-11] MEDS: FLOVENT 110 MCG INHALER 2 PUFF INH (07:51)
[2025-01-11] MEDS: VITAMIN D3 (cholecalciferol) 50 MCG PO (07:59)
[2025-01-11] MEDS: VASOTEC 20 MG PO (07:59)
[2025-01-11] MEDS: CRESTOR 40 MG PO (07:59)
[2025-01-11] MEDS: FLAGYL 500 MG PO (08:00)
[2025-01-11] MEDS: CLARITIN 10 MG PO (08:00)
[2025-01-11] MEDS: NEURONTIN 300 MG PO ×2 (08:00→15:38)
[2025-01-11] MEDS: ASPIR LOW (ENTERIC COATED) 81 MG PO (08:00)
[2025-01-11] MEDS: SENOKOT 17.2 MG PO (08:01)
[2025-01-11] MEDS: LEVAQUIN 750 MG PO (08:01)
[2025-01-11] MEDS: FEOSOL 325 MG PO (08:01)
[2025-01-11] MEDS: PROTONIX 40 MG PO (08:01)
[2025-01-11] MEDS: MIRALAX 17 GRAMS PO (08:02)
[2025-01-11 09:27] LABS: Blood Urea Nitrogen 9 mg/dl (7-17); Calcium 7.5 mg/dl (8.4-10.2); Carbon Dioxide 29 mmol/L (22-30); Chloride 103 mmol/L (98-107); Estimated Creatinine Clearance 74 ml/min; Glucose 92 mg/dl (70-99); Potassium 4.6 mmol/L (3.5-5.1); Sodium 132 mmol/L (135-145); eGFR > 60.00
[2025-01-11 10:41] VITALS: BP 116/78; PULSE 104
[2025-01-11] MEDS: ATIVAN 1 MG PO (11:17)
--- NOTE | 2025-01-11 12:59 | W.PN.ID1 ---
Date of Service
Date of Service: January 11, 2025
Today's Communication
Continue levofloxacin 750mg po daily and metronidazole 500mg po bid x14d through 01/23/25.
Assessment / Plan
# Fever (while on Augmentin), now resoilved
# Fevers 12/18 - 12/29 at OSH without clear infectious source (work-up neg)
# Recent intraluminal hematoma/hemorrhage (12/17) post hiatal hernia repair and gastropexy for gastric volvolus at [place] (12/10)
- UA neg
- blood cx's neg to date
- Repeat CT a/p; decreased in size of rim enhancing collection lateral to distal esophagus
-Possible source of fever sinusitis vs aspiration pneumonitis vs residual hematoma at distal esophagus site
-Continue levofloxacin 750mg po daily and metronidazole 500mg po bid x14d through 01/23/25.
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
Hypertension
Dyslipidemia
COPD/asthma
Anxiety/depression
Sinusitis
Gastric volvulus s/p Hiatal hernia repair with cruroplasty, mesh placement, and gastropexy at [place] 12/10/24
PAD s/p R fem to above knee popliteal bypass (06/2022)
R THR
RLE wounds
Sinus surgeries
Chief Complaint
-: Fever
Subjective / Review of Systems
No complaints. Will go to rehab.
Vital Signs / Physical Exam
Vital Signs
Vital Signs
Temp Pulse Resp BP Pulse Ox
99.3 F 97 18 119/67 96
01/11/25 07:00 01/11/25 07:00 01/11/25 07:00 01/11/25 07:00 01/11/25 07:00
Physical Exam
Constitutional: No Acute Distress
Head: Other (No frontal or maxillary sinus tenderness)
Eyes: Sclera Anicteric
Cardiovascular: Regular Rate and S1/S2
Pulmonary: Other (Decreased BS at bases)
Gastrointestinal: Soft, Non Tender, Non Distended and Normal Bowel Sounds
Extremities: Edema (BLE)
Neurological: AO x 3
Objective Data
Lab Data
Lab Results
01/10/25 06:04
01/11/25 07:37
Estimated Creat Clear 74 ml/min 01/11/25 07:37
Total Bilirubin 0.3 mg/dl (0.2-1.3) 01/07/25 09:31
AST 32 U/L (14-36) 01/07/25 09:31
ALT 28 U/L (0-35) 01/07/25 09:31
Alkaline Phosphatase 94 U/L (38-126) 01/07/25 09:31
Most recent labs reviewed.
Micro Results:
01/09/25 11:59 Blood Culture - Preliminary
Blood/Venous No Growth in 48 hours- Final report to follow
01/09/25 11:14 Blood Culture - Preliminary
Blood/Venous No Growth in 48 hours- Final report to follow
01/06/25 09:28 Blood Culture - Final
Blood/Venous No Growth - Final Report
01/06/25 09:00 Blood Culture - Final
Blood/Venous No Growth - Final Report
01/05/25 23:53 MRSA Screen - Final
Nose No Methicillin Resistant Staphylococcus aureus isolated.
01/09/25 CT a/p : 4.6 cm rim-enhancing fluid collection right lateral to the distal esophagus status post recent hiatal hernia repair. This may represent an abscess in the setting of fever. The fluid collection has decreased in size compared to 11.[address] from 12/17/2024. Small bilateral pleural effusions.
01/08/25 CT Chest: Markedly limited evaluation without intravenous contrast. In combination with distended stomach containing large volume fluid material emptied in comparison to recent prior chest CT, there is soft tissue prominence in the posterior
mediastinum which may in part represent some food material in the distal thoracic esophagus, proximal thoracic esophagus is not distended. CANNOT EXCLUDE MASS/LYMPHADENOPATHY OF THE POSTERIOR MEDIASTINUM. Is there a history of dysphasia? New small
bilateral pleural effusions with accompanying bilateral lower lobe opacification most likely representing subsegmental atelectasis.
--- NOTE | 2025-01-11 14:37 | W.PN.HOSP.TC ---
Today's Communication/Plan
-
discharge
Assessment / Plan
Assessment / Plan
64-year-old female with recent admission to [facility]. Per history patient went to [facility] on 1724 with hematemesis. She had a EGD done there on 12/09/2024 withn gastric depression compression and which showed a large
ulceration. Patient was transferred to [facility] on 12/09/2024. CT abdomen and pelvis on 12/10/2024 showed large hiatal hernia with gastric volvulus and large area of ulceration. Patient underwent hiatal hernia reduction with mesh,
cruroplasty, gastropexy for large hiatal hernia complicated by gastric volvulus.Dr Harvey did her surgery. She was discharged on 12/13/2024 and came to [facility] on 12/17/2024 for continued emesis. She had a loculated fluid collection and
esophageal distention and was transferred to [place]. Patient was on pressors at that time. From what I can understand she was treated with broad-spectrum antibiotics including cefepime, fluconazole, Flagyl and antibiotics were then changed to
cephalexin and eventually to Augmentin at discharge. Unclear what was treated questionable pyelonephritis, questionable leak from the esophagus. There is also mention about right lower extremity cellulitis.. Patient came to [facility]
with a questionable fall this time and was found to have fevers.
CT of the chest-markedly limited secondary to lack of IV contrast. In combination with distended stomach containing large volume of food material emptied and comparison to the recent chest CT, there is soft tissue prominence in the posterior
mediastinum which may be in part secondary to some food burial in the distal thoracic esophagus, proximal thoracic esophagus is not distended. Cannot exclude mass/lymphadenopathy of the posterior mediastinum. New small bilateral pleural effusions
with accompanying bilateral lower lobe opacification most likely representing subsegmental atelectasis.
CT abdomen and pelvis-4.6 cm rim-enhancing fluid collection right lateral to the distal esophagus status post recent hiatal hernia repair. May represent an abscess in the setting of fever fluid collection has decreased in size from 11.6 cm since
12/17/2024. Small bilateral pleural effusions. Large volume colonic stool indicating constipation. Chronic degenerative changes of spine bilateral SI joints left hip, symphysis pubis. Dextroscoliosis. Multiple chronic thoracolumbar fractures
Patient is awake alert oriented sitting in a chair
Cardiovascular system S1-S2 appreciated
Chest clear to auscultation
Abdomen soft and nontender laparoscopy scars-stable bowel sounds are present
Lower extremity mild edema from knee down, skin breaks noted on both legs, bandaged
Neuroexam is nonfocal
# Fever-blood cultures negative from 01/06/2025.
Bld Cx neg
Urinalysis-not indicative of infection
Source of infection unclear possible sinusitis versus aspiration pneumonitis versus residual hematoma at GE site
CT shows that the size of the collection is decreased
Discussed with radiology no leak seen on CT. Esophagram discontinued per discussion with radiology
CT surgery consulted however deferred to Dr. Dixon.
Discussed with infectious disease antibiotics changed to p.o. for 2 weeks and patient needs to follow-up with Dr. Harvey as outpatient
# Constipation-good results with enema
# Recent admission to [facility] for septic shock secondary to gastric volvulus secondary to hiatal hernia status post repair and gastropexy -continue PPI
# Mechanical fall-mechanical secondary to deconditioning
# Anemia-likely secondary to recent illness
# Hyponatremia-likely SIADH. oral lasix for discharge
# Hypertension-on enalapril 20 mg as outpatient
# Hyperlipidemia/atherosclerosis--continue Crestor, aspirin
# Peripheral artery disease history of bypass surgery right lower extremity in 2022
# Right lower extremity blistering and edema-wound care consulted. Continue daily dressings with Luis bandages
# Asthma-continue Asmanex or equivalent, albuterol as needed
# Anxiety and depression-continue Abilify, lorazepam
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
# Insomnia-continue Ambien
# Hypoalbuminemia
# Active smoker-cessation counseling
# DVT prophylaxis-Lovenox
# DNR
01/10/25-Case discussed with infectious disease, radiology, Dr. Dixon
Called office to fill in and to request an appt, to get connected to took more than 25 min !
Finally operative management to Dr. Thomas on phone. He was not at the hospital and did not have records in front of him.
He stated that patient almost left AMA last time she was not quite ready they did not quite figure out a source of fever. He wanted her to come back to this clinic 2 days later and to have a esophagram but she did not keep that appointment. He
does not have the shot in front of him but he thinks that Gram stain and cultures were negative but not completely sure. He will be happy to see her in the clinic this after discharge his office will contact her to get an appointment.
Patient was made aware that she needs to follow-up with Dr. Harvey regarding the collection and needs a repeat imaging. My conversation with Dr. Harvey and him wanting her to be seen in the
Clinic was discussed with the patient. She wants to go to rehab.
Will continue with antibiotics per recommendation from infectious disease with recommendation for the patient to follow-up with Dr. Thomas.
D/W Case management
Discharge time more than 30 min
Part of this note was created using voice recognition system. Occasional wrong word or��sound alike� substitutions may have inadvertently occurred due to the inherent limitations of voice recognition software. If noted kindly bring it to my
attention for correction.
Anticipated Discharge: Today
Subjective/Interval History
-
Date of Service: January 11, 2025
Objective Data
-
Labs:
Laboratory Results
01/11/25
07:37
Sodium 132 L
Potassium 4.6
Chloride 103
Carbon Dioxide 29
BUN 9
Creatinine 0.4 L
Glucose 92
Calcium 7.5 L
Vital Signs:
Vital Signs
Temp Pulse Resp BP Pulse Ox
99.3 F 97 18 119/67 96
01/11/25 07:00 01/11/25 07:00 01/11/25 07:00 01/11/25 07:00 01/11/25 07:00
I&O
01/10/25 01/11/25 01/12/25
06:59 06:59 06:59
Intake Total 720 / 720
Balance 720 / 720
--- NOTE | 2025-01-11 14:53 | W.DS.TRANS ---
Addendum entered and electronically signed by Eileen Burt MD 01/11/25 16:33:
Dictation- [id number]
Original Note:
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
-
Discharge Instructions:
Discharge Diagnosis/Procedures Status post mechanical fall likely 2/2
deconditioning s/p long hospitalization
Sinusitis/aspiration pneumonitis
4.6 cm collection above the diaphragm
Constipation
Anemia
Hyponatremia
Hypertension
Hyperlipidemia
Peripheral artery disease with history of bypass
Asthma
Anxiety and depression
Osteoporotic insufficiency fractures in the
lumbar spine
Insomnia
Diet As tolerated,2 Gram Sodium
Activity With assistance,As tolerated
Driving Restrictions No driving
Blood Work cbc, bmp [address] scan of the chest abdomen pelvis with
contrast 1 month to review the 4.6 cm collection
Other Services OT,PT
Instructions:
Stand-Alone Forms:
Changes to Home Medications: Yes
Discharge Medications:
DC Medications w/original date entered in [employer]
albuterol sulfate 90 mcg/actuation aerosol inhaler 2 puff inhalation R Q6HPRN PRN sob 12/17/24
aripiprazole 2 mg tablet 4 mg PO HS Mental Health/Anxiety 12/17/24
enalapril maleate 20 mg tablet 20 mg PO DAILY Blood Pressure 12/17/24
mometasone 220 mcg/actuation(120 doses)breath activated powder inhaler (Asmanex Twisthaler) 1 inh inhalation R BID Lung/Breathing Issues 12/17/24
pantoprazole 40 mg tablet,delayed release (Protonix) 40 mg PO BID Gastrointestinal Issue 12/17/24
rosuvastatin 40 mg tablet (Crestor) 40 mg PO DAILY High Cholesterol 12/17/24
aspirin 81 mg tablet,delayed release 81 mg PO DAILY Blood Clot Prevention/Tx 01/05/25
cyclobenzaprine 10 mg tablet 10 mg PO BIDPRN PRN spasms 01/05/25
fexofenadine-pseudoephedrine ER 180 mg-240 mg tablet,ext.release 24 hr (Becky-D 24 Hour) 1 tab PO DAILY Allergies 01/05/25
ipratropium 0.5 mg-albuterol 3 mg (2.5 mg base)/3 mL nebulization soln 3 ml inhalation R Q6HPRN PRN sob 01/05/25
acetaminophen 325 mg tablet 650 mg (2 x 325 mg) PO Q4HPRN PRN mild pain/GALLO/temp> 100.4F #30 tabs 01/06/25
oxycodone 5 mg tablet 5 mg PO Q4HPRN PRN moderate pain #5 tabs 01/06/25
gqnwqtoxrh-vkvskwmtsyaor-zhlzqqmx 50 mg-325 mg-40 mg tablet 1 tab PO QIDPRN PRN mirgraines #2 tabs 01/11/25
cholecalciferol (vitamin D3) 50 mcg (2,000 unit) tablet 50 mcg PO DAILY Supplement #0 tabs 01/11/25
ferrous sulfate 325 mg (65 mg iron) tablet (FeroSul) 325 mg PO DAILY anemia #0 tabs 01/11/25
gabapentin 300 mg capsule 300 mg PO TID Pain #0 caps 01/11/25
levofloxacin 750 mg tablet 750 mg PO DAILY Infection #0 tabs 01/11/25
lorazepam 1 mg tablet 1 mg PO QIDPRN PRN anxiety #4 tabs 01/11/25
metronidazole 500 mg tablet 500 mg PO BID Infection #0 tabs 01/11/25
polyethylene glycol 3350 17 gram oral powder packet 17 g PO DAILY Constipation #0 ea 01/11/25
sennosides 8.6 mg tablet (Melissa-uche) 17.2 mg (2 x 8.6 mg) PO BID Constipation #0 tabs 01/11/25
zolpidem 10 mg tablet (Ambien) 10 mg PO HS Sleep #2 tabs 01/11/25
Home Medication Changes
new
MiraLAX, Senokot, Flagyl, Levaquin, iron, vitamin D, oxycodone
Pending Results: No
[2025-01-11 15:00] VITALS: BP 127/79
--- NOTE | 2025-01-11 15:06 | CM ---
CM reviewed chart, patient seen bedside, discussed ability for [facility] to accept patient today, patient now agreeable and does not want home with VN. IMM verbally reviewed, provided with copy, placed in chart. Patient scheduled for 4:15
p.m. [facility] transport, aware of cost ($170). Transport time provided to liaisonNilo, at [facility]. CM will continue to follow for all discharge planning.
Plan; d/c to [facility], 4:15 p.m[address] [facility] transport
[facility]
Report: [phone]
--- NOTE | 2025-01-11 16:34 | W.DS.TRANS ---
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
-
Discharge Instructions:
Discharge Diagnosis/Procedures Status post mechanical fall likely 2/2
deconditioning s/p long hospitalization
Sinusitis/aspiration pneumonitis
4.6 cm collection above the diaphragm
Constipation
Anemia
Hyponatremia
Hypertension
Hyperlipidemia
Peripheral artery disease with history of bypass
Asthma
Anxiety and depression
Osteoporotic insufficiency fractures in the
lumbar spine
Insomnia
Diet As tolerated,2 Gram Sodium
Activity With assistance,As tolerated
Driving Restrictions No driving
Blood Work cbc, bmp [address] scan of the chest abdomen pelvis with
contrast 1 month to review the 4.6 cm collection
Other Services OT,PT
Instructions:
Stand-Alone Forms:
Changes to Home Medications: Yes
Discharge Medications:
DC Medications w/original date entered in [employer]
albuterol sulfate 90 mcg/actuation aerosol inhaler 2 puff inhalation R Q6HPRN PRN sob 12/17/24
aripiprazole 2 mg tablet 4 mg PO HS Mental Health/Anxiety 12/17/24
enalapril maleate 20 mg tablet 20 mg PO DAILY Blood Pressure 12/17/24
mometasone 220 mcg/actuation(120 doses)breath activated powder inhaler (Asmanex Twisthaler) 1 inh inhalation R BID Lung/Breathing Issues 12/17/24
pantoprazole 40 mg tablet,delayed release (Protonix) 40 mg PO BID Gastrointestinal Issue 12/17/24
rosuvastatin 40 mg tablet (Crestor) 40 mg PO DAILY High Cholesterol 12/17/24
aspirin 81 mg tablet,delayed release 81 mg PO DAILY Blood Clot Prevention/Tx 01/05/25
cyclobenzaprine 10 mg tablet 10 mg PO BIDPRN PRN spasms 01/05/25
fexofenadine-pseudoephedrine ER 180 mg-240 mg tablet,ext.release 24 hr (Becky-D 24 Hour) 1 tab PO DAILY Allergies 01/05/25
ipratropium 0.5 mg-albuterol 3 mg (2.5 mg base)/3 mL nebulization soln 3 ml inhalation R Q6HPRN PRN sob 01/05/25
acetaminophen 325 mg tablet 650 mg (2 x 325 mg) PO Q4HPRN PRN mild pain/GALLO/temp> 100.4F #30 tabs 01/06/25
oxycodone 5 mg tablet 5 mg PO Q4HPRN PRN moderate pain #5 tabs 01/06/25
ubdscumrbz-iovvdsbwzljxh-lfsjpmiv 50 mg-325 mg-40 mg tablet 1 tab PO QIDPRN PRN mirgraines #2 tabs 01/11/25
cholecalciferol (vitamin D3) 50 mcg (2,000 unit) tablet 50 mcg PO DAILY Supplement #0 tabs 01/11/25
ferrous sulfate 325 mg (65 mg iron) tablet (FeroSul) 325 mg PO DAILY anemia #0 tabs 01/11/25
furosemide 20 mg tablet (Lasix) 20 mg PO Q OTHER DAY Fluid retention/Swelling #30 tabs 01/11/25
gabapentin 300 mg capsule 300 mg PO TID Pain #0 caps 01/11/25
levofloxacin 750 mg tablet 750 mg PO DAILY Infection #0 tabs 01/11/25
lorazepam 1 mg tablet 1 mg PO QIDPRN PRN anxiety #4 tabs 01/11/25
metronidazole 500 mg tablet 500 mg PO BID Infection #0 tabs 01/11/25
polyethylene glycol 3350 17 gram oral powder packet 17 g PO DAILY Constipation #0 ea 01/11/25
sennosides 8.6 mg tablet (Melissa-uche) 17.2 mg (2 x 8.6 mg) PO BID Constipation #0 tabs 01/11/25
zolpidem 10 mg tablet (Ambien) 10 mg PO HS Sleep #2 tabs 01/11/25
Home Medication Changes
new
new
MiraLAX, Senokot, Flagyl, Levaquin, iron, vitamin D, oxycodone, lasix
Pending Results: No
== END 2025-01-11 17:13 | DRG 643 ==
LOC: 4 WEST ACU 13:13
PROVIDERS: Emergency Medicine; General Practice; ADMITTING PHYSICIAN Hospitalist; ATTENDING PHYSICIAN Hospitalist; CONSULT PHYSICIAN Surgery; EMERGENCY PHYSICIAN Emergency Medicine; FAMILY PHYSICIAN Family Medicine Adult Medicine; OTHER PHYSICIAN Internal Medicine Infectious Disease
DX: E22.2 Syndrome of inappropriate secretion of antidiuretic hormone (principal); J69.0 Pneumonitis due to inhalation of food and vomit; M80.08XA Age-related osteoporosis with current pathological fracture, vertebra(e), initial encounter for fracture; R64 Cachexia; Z68.1 Body mass index [BMI] 19.9 or less, adult; R53.81 Other malaise; D64.9 Anemia, unspecified; I10 Essential (primary) hypertension; K59.00 Constipation, unspecified; E78.5 Hyperlipidemia, unspecified; I73.9 Peripheral vascular disease, unspecified; F41.9 Anxiety disorder, unspecified; F32.A Depression, unspecified; J45.909 Unspecified asthma, uncomplicated; F17.200 Nicotine dependence, unspecified, uncomplicated; L89.151 Pressure ulcer of sacral region, stage 1; J32.9 Chronic sinusitis, unspecified; G47.00 Insomnia, unspecified; K31.89 Other diseases of stomach and duodenum; K22.89 Other specified disease of esophagus; W19.XXXA Unspecified fall, initial encounter; Z66 Do not resuscitate; Z88.0 Allergy status to penicillin; Z88.2 Allergy status to sulfonamides; Z79.82 Long term (current) use of aspirin; Z79.899 Other long term (current) drug therapy; Z95.820 Peripheral vascular angioplasty status with implants and grafts; Z96.641 Presence of right artificial hip joint
CPT/HCPCS: 70450; 71046; 71250; 72125; 72170; 74019; 74177; 80048; 80053; 81003; 81015; 82306; 82550; 82607; 82728; 82962; 83540; 83550; 83930; 83935; 84300; 85025; 85027; 87040; 87070; 94640; 97116; 97530; 99285; 99406; Q9967